=== PATIENT | female | born 2000 | race Caucasian/White ===

== ENCOUNTER 2020-04-02 18:01 | Emergency (ER) | payer BC, MEDICAID, SELFPAY ==
[2020-04-02 18:16] VITALS: BP 103/69; PULSE 123; RESP 18; TEMP 37.3; O2SAT 99; BMI 33.3
--- NOTE | 2020-04-02 18:35 | CTR_ITS ---
PROCEDURE INFORMATION: Exam: CT Abdomen And Pelvis With Contrast Exam date and time: 04/02/2020 7:37 PM Age: 19 years old Clinical indication: Nausea and vomiting and other: Diarrhea; Abdominal pain; Localized; Right lower quadrant (rlq); Additional info: Abd pain TECHNIQUE: Imaging protocol: Computed tomography of the abdomen and pelvis with intravenous contrast. Radiation optimization: All CT scans at this facility use at least one of these dose optimization techniques: automated exposure control; mA and/or kV adjustment per patient size (includes targeted exams where dose is matched to clinical indication); or iterative reconstruction. Contrast material: OMNI 300; Contrast volume: 95 ml; Contrast route: INTRAVENOUS (IV); COMPARISON: No relevant prior studies available. RADIATION DOSE METRICS: Total DLP (mGy-cm): 1687.71 FINDINGS: Lungs: Limited assessment lung bases without visible evidence of active cardiopulmonary process. Liver: Unremarkable. No mass. Gallbladder and bile ducts: Normal. No calcified stones. No ductal dilation. Pancreas: Normal. No ductal dilation. Spleen: Normal. No splenomegaly. Adrenals: Normal. No mass. Kidneys and ureters: Examination reveals focal pyelonephritis involving the equator of the right kidney. No visible abscess. Left kidney appears unremarkable. No hydronephrosis or perinephric fluid bilaterally. Stomach and bowel: Unremarkable. No obstruction. No mucosal thickening. Appendix: The appendix is visualized and appears noninflamed. Intraperitoneal space: Unremarkable. No free air. No significant fluid collection. Vasculature: Unremarkable. No abdominal aortic aneurysm. Lymph nodes: Unremarkable. No enlarged lymph nodes. Bladder: Unremarkable as visualized. Reproductive: Unremarkable as visualized. Bones/joints: No visible active osseous pathology. Soft tissues: Unremarkable. Other findings: Obesity. CT/CT abdomen pelvis w con* [id number] IMPRESSION: 1. Focal pyelonephritis right kidney. 2. The appendix is visualized and appears noninflamed. Radiation Dose CTDIVOL = (mGy): DLP = 1687.71 (mGy-cm)
--- NOTE | 2020-04-02 18:37 | W.ED.GENADLT ---
HPI - General Adult General: Chief complaint: General Medical Stated complaint: abd pain, vomiting, flank pain Time Seen by Provider: 04/02/20 18:24 Source: patient Mode of arrival: ambulatory Limitations: no limitations History of Present Illness: HPI narrative: 19-year-old female states she been having right upper quadrant and right flank pain over the last 2 days. Patient seen at [facility] yesterday and had negative COVID. States the pain is sharp in nature is much worse with palpation and improved with rest. She denies any vomiting or diarrhea. Denies any difficulty urinating. Denies any fevers. Onset (ago): day(s) Associated symptoms: Deny chest pain, dyspnea, headache(s) or rash Review of Systems Const: Denies: fever(s), chills, body aches or change in appetite Eyes: Denies: blurry vision or eye discomfort ENMT: Denies: throat pain or dental pain Card: Denies: chest pain Resp: Denies: dyspnea GI: Reports: abdominal pain : Reports: flank pain Musc: Denies: neck pain or back pain Skin/Breast: Denies: rash Neuro: Denies: headache(s) Psych: Denies: depression Gerardo/Lymph: Denies: easy bruising All/Imm: Denies: urticaria PFSH ED PFSH: Social History (Updated 04/02/20 @ 18:22 by Tariq Garcia RN) Smoking and tobacco status: never smoked Alcohol intake: never Substance/Drug Use: never Female Reproductive History: Date of last menstrual period: 03/31/20 Physical Exam Const: COMMON NORMALS: no acute distress, patient oriented x3 and healthy appearing HENMT: COMMON NORMALS: normocephalic and atraumatic HEAD & SCALP: normocephalic and atraumatic Eye: COMMON NORMALS: Equal, round and reactive pupils present and EOMs intact bilaterally PUPIL: Yes Equal, round and reactive pupils present Neck/C-Spine: COMMON NORMALS: full ROM and supple Chest: COMMONS NORMALS: normal inspection of the chest and normal palpation of entire chest wall Resp: COMMON NORMALS: normal respiratory effort, No retractions, No use of accessory muscles and clear to auscultation bilaterally AUSCULTATION: clear to auscultation bilaterally Cardio: COMMON NORMALS: regular rate, regular rhythm and No murmurs present (Cardio) RATE: regular rate RHYTHM: regular rhythm GI: COMMON NORMALS: Normal to inspection, nondistended, normoactive bowel sounds present, Soft to palpation and no masses PALPATION: Yes Soft to palpation OTHER: ruq tenderness and r flank tenderness Extremity: COMMON NORMALS: normal to inspection and full ROM Neuro: COMMON NORMALS: patient oriented x3, moves all extremities and no focal motor deficits Psych: COMMON NORMALS: mental status grossly normal, Normal thought process present and cooperative THOUGHT PROCESS: Normal thought process present Skin: COMMON NORMALS: no rashes or lesions noted and no wounds GENERAL SKIN EXAM: no rashes or lesions noted Course Vital Signs: Vital signs: Vital Signs Temperature 99.2 F 04/02/20 18:16 Pulse Rate 123 H 04/02/20 18:16 Respiratory Rate 18 04/02/20 18:16 Blood Pressure 103/69 04/02/20 18:16 Pulse Oximetry 99 04/02/20 18:16 MDM - General Adult MDM Narrative: Medical decision making narrative: Patient presents here with pyelonephritis of right kidney. Patient is able to tolerate p.o. here and is not septic. Will trial outpatient therapy first and place patient on Cipro. Patient is to follow-up primary care doctor in 3 to 5 days return if worsening. Patient understands agrees to plan. Lab Data: Labs: Lab Results 04/02/20 04/02/20 04/02/20 Range/Units 18:50 18:50 18:50 WBC 10.1 (4.5-13.0) 10^3/ uL RBC 4.62 (4.1-5.3) 10^6/u L Hgb 13.3 (11.5-15.3) g/dL Hct 41.0 (37.0-47.0) % MCV 88.7 (81-99) fL MCH 28.8 (28.0-34.0) pg MCHC 32.4 (30.0-36.0) g/dL RDW 13.1 (12.1-15.1) % Plt Count 323 (130-400) 10^3/c mm MPV 10.0 (7.4-10.4) fL Neut % (Auto) 81.0 % Lymph % (Auto) 10.5 % [place] % (Auto) 7.6 % Eos % (Auto) 0.3 % Baso % (Auto) 0.4 % Neut # (Auto) 8.17 H (1.8-8.0) 10^3/u L Lymph # (Auto) 1.1 L (1.5-6.5) 10^3/u L [place] # (Auto) 0.8 (0.2-0.9) 10^3/u L Eos # (Auto) 0.0 (0.0-0.8) 10^3/u L Baso # (Auto) 0.0 (0.0-0.1) 10^3/u L Nucleated RBC % (a uto) 0 % Nucleated RBCs # 0.0 /100WBC Sodium 137 (136-145) mmol/L Potassium 3.9 (3.5-5.1) mmol/L Chloride 101 (98-107) mmol/L Carbon Dioxide 26 (22-29) mmol/L Anion Gap 13.9 (5-19) BUN 7 (6-20) mg/dL Creatinine 0.7 (0.5-0.9) mg/dL GFR Calculation 107.8 (90-130) mL/min Glucose 110 (65-115) mg/dL Calculated Osmolal ity 280 L (285-295) mOsm/k g Calcium 9.0 (8.5-10.5) mg/dL Total Bilirubin 0.5 (0.15-1.2) mg/dL AST 12 (0-32) U/L ALT 8 (0-33) U/L Alkaline Phosphata se 76 (35-105) IU/L Total Protein 7.7 (6.6-8.7) g/dL Albumin 4.2 (3.5-5.2) g/dL Globulin 3.5 (1.3-4.6) g/dL Lipase 25 (13-60) U/L HCG, Qual Negative (Negative) Urine Color (Yellow) Urine Appearance (CLEAR) Urine pH (5-7) Ur Specific Gravit y (1.005-1.030) Urine Protein (Negative) Urine Glucose (UA) (Normal) Urine Ketones (Negative) Urine Blood (Negative) Urine Nitrate (Negative) Urine Bilirubin (NEGATIVE) Urine Urobilinogen (Negative) mg/dL Ur Leukocyte Aisha ase (Negative) Urine RBC (0-2) /hpf Urine WBC (0-5) /hpf Ur Squamous Epith Cells (0-5) Amorphous Sediment Urine Bacteria (NONE) Urine Mucus 04/02/20 Range/Units 20:07 WBC (4.5-13.0) 10^3/ uL RBC (4.1-5.3) 10^6/u L Hgb (11.5-15.3) g/dL Hct (37.0-47.0) % MCV (81-99) fL MCH (28.0-34.0) pg MCHC (30.0-36.0) g/dL RDW (12.1-15.1) % Plt Count (130-400) 10^3/c mm MPV (7.4-10.4) fL Neut % (Auto) % Lymph % (Auto) % [place] % (Auto) % Eos % (Auto) % Baso % (Auto) % Neut # (Auto) (1.8-8.0) 10^3/u L Lymph # (Auto) (1.5-6.5) 10^3/u L [place] # (Auto) (0.2-0.9) 10^3/u L Eos # (Auto) (0.0-0.8) 10^3/u L Baso # (Auto) (0.0-0.1) 10^3/u L Nucleated RBC % (a uto) % Nucleated RBCs # /100WBC Sodium (136-145) mmol/L Potassium (3.5-5.1) mmol/L Chloride (98-107) mmol/L Carbon Dioxide (22-29) mmol/L Anion Gap (5-19) BUN (6-20) mg/dL Creatinine (0.5-0.9) mg/dL GFR Calculation (90-130) mL/min Glucose (65-115) mg/dL Calculated Osmolal ity (285-295) mOsm/k g Calcium (8.5-10.5) mg/dL Total Bilirubin (0.15-1.2) mg/dL AST (0-32) U/L ALT (0-33) U/L Alkaline Phosphata se (35-105) IU/L Total Protein (6.6-8.7) g/dL Albumin (3.5-5.2) g/dL Globulin (1.3-4.6) g/dL Lipase (13-60) U/L HCG, Qual (Negative) Urine Color Yellow (Yellow) Urine Appearance Sl hazy (CLEAR) Urine pH 5 (5-7) Ur Specific Gravit y 1.015 (1.005-1.030) Urine Protein Neg (Negative) Urine Glucose (UA) Norm (Normal) Urine Ketones 1+ H (Negative) Urine Blood 2+ H (Negative) Urine Nitrate Negative (Negative) Urine Bilirubin Neg (NEGATIVE) Urine Urobilinogen Norm (Negative) mg/dL Ur Leukocyte Aisha ase Negative (Negative) Urine RBC 0-4 H (0-2) /hpf Urine WBC 10-15 H (0-5) /hpf Ur Squamous Epith Cells 10-15 H (0-5) Amorphous Sediment Not Reportable Urine Bacteria 1+ H (NONE) Urine Mucus 1+ Imaging Data^: CT Abd/Pel: Radiologist's impression: [place] [address] CT Scan Report Signed Patient: Jacquelin Kyle Unit #: [id number] : 2000 Age/Sex: 19 / F ADM Date: 04/02/20 Loc: ER Room/Bed: Attending Dr: Ordering Provider/Ordering MD: Silvestre Lester MD Date of Service: 04/02/20 Procedure(s): CT abdomen pelvis w con* [id number] Accession Number(s): [id number] Report Number: [id number] PROCEDURE INFORMATION: Exam: CT Abdomen And Pelvis With Contrast Exam date and time: 04/02/2020 7:37 PM Age: 19 years old Clinical indication: Nausea and vomiting and other: Diarrhea; Abdominal pain; Localized; Right lower quadrant (rlq); Additional info: Abd pain TECHNIQUE: Imaging protocol: Computed tomography of the abdomen and pelvis with intravenous contrast. Radiation optimization: All CT scans at this facility use at least one of these dose optimization techniques: automated exposure control; mA and/or kV adjustment per patient size (includes targeted exams where dose is matched to clinical indication); or iterative reconstruction. Contrast material: OMNI 300; Contrast volume: 95 ml; Contrast route: INTRAVENOUS (IV); COMPARISON: No relevant prior studies available. RADIATION DOSE METRICS: Total DLP (mGy-cm): 1687.71 FINDINGS: Lungs: Limited assessment lung bases without visible evidence of active cardiopulmonary process. Liver: Unremarkable. No mass. Gallbladder and bile ducts: Normal. No calcified stones. No ductal dilation. Pancreas: Normal. No ductal dilation. Spleen: Normal. No splenomegaly. Adrenals: Normal. No mass. Kidneys and ureters: Examination reveals focal pyelonephritis involving the equator of the right kidney. No visible abscess. Left kidney appears unremarkable. No hydronephrosis or perinephric fluid bilaterally. Stomach and bowel: Unremarkable. No obstruction. No mucosal thickening. Appendix: The appendix is visualized and appears noninflamed. Intraperitoneal space: Unremarkable. No free air. No significant fluid collection. Vasculature: Unremarkable. No abdominal aortic aneurysm. Lymph nodes: Unremarkable. No enlarged lymph nodes. Bladder: Unremarkable as visualized. Reproductive: Unremarkable as visualized. Bones/joints: No visible active osseous pathology. Soft tissues: Unremarkable. Other findings: Obesity. CT/CT abdomen pelvis w con* [id number] IMPRESSION: 1. Focal pyelonephritis right kidney. 2. The appendix is visualized and appears noninflamed. Discharge Plan Discharge Patient Disposition: Home Clinical Impression: Pyelonephritis Condition: Stable Prescriptions: [place] 5-325 mg tablet 1 tab PO Q6H PRN (Reason: pain) Qty: 14 RF: 0 ondansetron 4 mg tablet,disintegrating 4 mg PO Q6H PRN (Reason: nausea and vomiting) Qty: 14 RF: 0 Cipro 500 mg tablet 500 mg PO BID Qty: 14 RF: 0 Discharge Orders: Discharge Order (Routine); Ordered 04/02/20 Ordered By: Silvestre Lester Referrals: David Hernandez MD [Primary Care Provider] - 1-3 days Discharge Diet: Advance as tolerated Discharge Activity: Resume usual activity Patient Instructions: Acute Pyelonephritis (ED) Stand Alone Forms: Work/School Release Coding Level of Care Code ED 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
[2020-04-02 18:58] LABS: Basophils % 0.4 %; Eosinophils % 0.3 %; Hemoglobin 13.3 g/dL (11.5-15.3); Lymphocytes # 1.1 10^3/uL (1.5-6.5); Lymphocytes % 10.5 %; Mean Corpuscular HGB Conc 32.4 g/dL (30.0-36.0); Mean Corpuscular Hemoglobin 28.8 pg (28.0-34.0); Mean Corpuscular Volume 88.7 fL (81-99); Monocytes # 0.8 10^3/uL (0.2-0.9); Monocytes % 7.6 %; Neutrophils # 8.17 10^3/uL (1.8-8.0); Nucleated Red Blood Cells % 0 %; Platelet Count 323 10^3/cmm (130-400); Red Blood Count 4.62 10^6/uL (4.1-5.3); Red Cell Distribution Width 13.1 % (12.1-15.1); White Blood Count 10.1 10^3/uL (4.5-13.0)
[2020-04-02 19:25] LABS: Alanine Aminotransferase 8 U/L (0-33); Albumin Level 4.2 g/dL (3.5-5.2); Alkaline Phosphatase 76 IU/L (35-105); Anion Gap 13.9 (5-19); Aspartate Amino Transferase 12 U/L (0-32); Blood Urea Nitrogen 7 mg/dL (6-20); Carbon Dioxide 26 mmol/L (22-29); Chloride 101 mmol/L (98-107); Globulin 3.5 g/dL (1.3-4.6); Glomerular Filtration Rate 107.8 mL/min (90-130); Glucose 110 mg/dL (65-115); Lipase 25 U/L (13-60); Osmolality Calculated 280 mOsm/kg (285-295); Potassium 3.9 mmol/L (3.5-5.1); Sodium 137 mmol/L (136-145); Total Bilirubin 0.5 mg/dL (0.15-1.2); Total Protein 7.7 g/dL (6.6-8.7)
[2020-04-02 19:29] LABS: HCG, Serum Qual Negative (Negative)
[2020-04-02] MEDS: iohexol 300 mg/mL 100 mL Btl IV (19:57)
[2020-04-02] MEDS: sodium chloride 0.9% 1,000 ML 999 ML IV (20:30)
[2020-04-02 20:35] LABS: Add Urine Microscopic? YES; Bacteria Urine 1+; Bilirubin Urine Neg (NEGATIVE); Blood Urine 2+ (Negative); Glucose Urine UA Norm (Normal); Ketones Urine 1+ (Negative); Leukocyte Esterase Urine Negative (Negative); Mucus Urine 1+; Nitrate Urine Negative (Negative); Protein Urine Neg (Negative); RBC Urine 0-4 /hpf (0-2); Specific Gravity, Urine 1.015 (1.005-1.030); Urine Appearance SL Hazy (CLEAR); Urine Color Yellow (Yellow); Urobilinogen Urine Norm (Negative); pH Urine 5 (5-7)
[2020-04-02] MEDS: cefTRIAXone 1,000 mg SDV 1000 MG IM (21:11)
[2020-04-02] MEDS: lidocaine 1% INJ 20 mL INJECTION (21:11)
[2020-04-02 21:30] VITALS: BP 117/74; PULSE 77; RESP 16; O2SAT 100
== END 2020-04-02 21:32 | disposition home or self-care (01) ==
PROVIDERS: Emergency Provider Emergency Medicine; PCP Family Medicine
DX: N12 Tubulo-interstitial nephritis, not specified as acute or chronic (principal)
CPT/HCPCS: 12345; 36415; 74177; 80053; 81001; 83690; 84703; 85025; 87077; 87086; 87186; 96360; 96372; 99281; 99283; J0696; J7030; Q9967

== ENCOUNTER → 2020-06-20 16:07 | Outpatient (BNVA) | payer BC, MEDICAID, SELFPAY | PROVIDERS: PCP Family Medicine; Visit Provider Obstetrics & Gynecology | DX: Z32.01 Encounter for pregnancy test, result positive (principal) | CPT/HCPCS: 81025 ==

== ENCOUNTER → 2020-07-04 08:45 | Outpatient (BNVA) | payer BC, MEDICAID, SELFPAY | PROVIDERS: PCP Family Medicine; Visit Provider Nurse Practitioner Women's Health | DX: Z34.81 Encounter for supervision of other normal pregnancy, first trimester (principal) | CPT/HCPCS: 84315; 87086 ==

== ENCOUNTER → 2020-07-17 13:50 | Outpatient (BNVA) | payer BC, MEDICAID, SELFPAY | PROVIDERS: PCP Family Medicine; Visit Provider Obstetrics & Gynecology | DX: O26.899 Other specified pregnancy related conditions, unspecified trimester (principal); O99.210 Obesity complicating pregnancy, unspecified trimester; N76.0 Acute vaginitis; B96.89 Other specified bacterial agents as the cause of diseases classified elsewhere; O23.599 Infection of other part of genital tract in pregnancy, unspecified trimester; Z3A.00 Weeks of gestation of pregnancy not specified | CPT/HCPCS: 80307; 82950; 84315; 84443; 85027; 86592; 86762; 86803; 86850; 86900; 87070; 87086; 87205; 87340; 87491; 87591; 87661; 87806 ==

== ENCOUNTER → 2020-07-23 07:57 | Outpatient (BNVA) | payer BC, SELFPAY | PROVIDERS: PCP Family Medicine; Visit Provider Obstetrics & Gynecology | DX: Z34.90 Encounter for supervision of normal pregnancy, unspecified, unspecified trimester (principal) | CPT/HCPCS: 82951; 82952; 83036; 84315 ==

== ENCOUNTER → 2020-08-21 08:05 | Outpatient (BNVA) | payer BC, MEDICAID, SELFPAY | PROVIDERS: PCP Family Medicine; Visit Provider Nurse Practitioner Women's Health | DX: O23.599 Infection of other part of genital tract in pregnancy, unspecified trimester (principal); A59.01 Trichomonal vulvovaginitis; O26.899 Other specified pregnancy related conditions, unspecified trimester; N89.8 Other specified noninflammatory disorders of vagina; A59.9 Trichomoniasis, unspecified; Z3A.00 Weeks of gestation of pregnancy not specified | CPT/HCPCS: 84315; 87661 ==

== ENCOUNTER 2020-10-14 17:33 | Outpatient (CLI) | payer BC, SELFPAY ==
[2020-10-14 17:44] VITALS: BMI 44.6
[2020-10-14 17:50] VITALS: BP 133/75; PULSE 129
[2020-10-14 18:35] VITALS: BP 133/75; PULSE 129; RESP 18
--- NOTE | 2020-10-14 18:40 | PC.NURSE ---
UNABLE TO PRINT HOME CARE INSTRUCTIONS THIS ACQUISITIONS LOGISTICS ANALYST TRIED WELL ANOTHER STAFF MEMBER STILL UNABLE TO GET THEM TO PRINT.
[2020-10-14 20:49] LABS: UPRO/UCREAT Ratio 0.12 mg/mg CR; Urine Creatinine 68 mg/dL (28-217); Urine Protein Random 8 mg/dL
== END 2020-10-14 18:35 | disposition home or self-care (01) ==
LOC: OPOB 17:36 → OBGYN 17:37
PROVIDERS: PCP Family Medicine; Visit Provider Obstetrics & Gynecology
DX: O21.9 Vomiting of pregnancy, unspecified (principal); Z3A.00 Weeks of gestation of pregnancy not specified; R19.7 Diarrhea, unspecified
CPT/HCPCS: 82570; 84156; 99211

== ENCOUNTER → 2020-11-13 08:45 | Outpatient (BNVA) | payer BC, SELFPAY | PROVIDERS: PCP Family Medicine; Visit Provider Obstetrics & Gynecology | DX: Z34.01 Encounter for supervision of normal first pregnancy, first trimester (principal) | CPT/HCPCS: 82951; 82952; 84315; 85025 ==

== ENCOUNTER 2020-12-24 16:04 | Outpatient (CLI) | payer BC, SELFPAY ==
[2020-12-24] VITALS (8 sets, daily range): BP systolic 104–120; BP diastolic 58–71; PULSE 95–122; RESP 17; BMI 44.2
== END 2020-12-24 18:10 | disposition home or self-care (01) ==
LOC: OPOB 16:05 → OBGYN 16:30
PROVIDERS: PCP Family Medicine; Visit Provider Obstetrics & Gynecology
DX: O26.899 Other specified pregnancy related conditions, unspecified trimester (principal); Z3A.00 Weeks of gestation of pregnancy not specified; R10.2 Pelvic and perineal pain
CPT/HCPCS: 59025; 99211

== ENCOUNTER → 2021-01-06 13:22 | Outpatient (BNVA) | payer BC, SELFPAY | PROVIDERS: PCP Family Medicine; Visit Provider Obstetrics & Gynecology | DX: Z34.01 Encounter for supervision of normal first pregnancy, first trimester (principal) | CPT/HCPCS: 84315; 87081; 87661 ==

== ENCOUNTER → 2021-01-29 10:13 | Outpatient (BNVA) | payer BC, SELFPAY | PROVIDERS: PCP Family Medicine; Visit Provider Obstetrics & Gynecology | DX: Z34.01 Encounter for supervision of normal first pregnancy, first trimester (principal) | CPT/HCPCS: 84315; 87635 ==

== ENCOUNTER 2021-02-02 18:50 | Inpatient (IN) | payer BC, SELFPAY ==
[2021-02-02] VITALS (8 sets, daily range): BP systolic 116–129; BP diastolic 60–76; PULSE 104–138; TEMP 36.2–36.7; O2SAT 98
[2021-02-02] MEDS: miSOPROStol 100 mcg tablet 25 MCG VAGINAL (19:59)
--- NOTE | 2021-02-02 20:01 | PM.OPHPUD ---
Labor & Delivery H&P Update Date of Procedure: February 02, 2021 Date H&P Performed: 01/27/21 H&P update information: I have reviewed H&P completed within last 30 days and No changes to prior documentation Admission Diagnosis:
[2021-02-02 23:13] LABS: Basophils # 0.1 10^3/uL (0.0-0.1); Basophils % 0.5 %; Eosinophils # 0.1 10^3/uL (0.0-0.8); Eosinophils % 1.2 %; Hematocrit 32.4 % (37.0-47.0); Hemoglobin 10.5 g/dL (11.5-15.3); Lymphocytes # 1.8 10^3/uL (1.5-6.5); Lymphocytes % 17.9 %; Mean Corpuscular HGB Conc 32.4 g/dL (30.0-36.0); Mean Corpuscular Hemoglobin 27.4 pg (28.0-34.0); Mean Corpuscular Volume 84.6 fL (81-99); Mean Platelet Volume 11.8 fL (7.4-10.4); Monocytes # 0.7 10^3/uL (0.2-0.9); Monocytes % 6.8 %; Neutrophils # 7.19 10^3/uL (1.8-8.0); Neutrophils % 73.5 %; Nucleated Red Blood Cells % 0 %; Platelet Count 276 10^3/cmm (130-400); Red Blood Count 3.83 10^6/uL (4.1-5.3); Red Cell Distribution Width 13.5 % (12.1-15.1); White Blood Count 9.8 10^3/uL (4.5-13.0)
[2021-02-03] VITALS (42 sets, daily range): BP systolic 92–149; BP diastolic 54–87; PULSE 83–107; RESP 15–18; TEMP 35.8–37.1
[2021-02-03] MEDS: miSOPROStol 100 mcg tablet 25 MCG VAGINAL ×3 (00:22→10:20)
[2021-02-03] MEDS: dextrose 5%-lactated ringers 1,000 ML 125 ML IV (20:15)
[2021-02-03] MEDS: oxytocin 30 UNIT/500 ML BAG IV (20:15)
[2021-02-04] VITALS (128 sets, daily range): BP systolic 92–164; BP diastolic 52–99; PULSE 32–164; RESP 17–18; TEMP 35.9–37.9; O2SAT 81–100
[2021-02-04] MEDS: dextrose 5%-lactated ringers 1,000 ML 125 ML IV ×3 (04:12→18:21)
--- NOTE | 2021-02-04 10:00 | PC.NURSE ---
Pitocin titration. Pitocin started at 0845 as ordered, verified by BYRON Pretty. Spreadsheet filled out, did not save and medication fell off SEP and had to be reacknowledged. Actual pitocin titration as follows: 0845 2mU. 0900 4mU. 0915 6mU. 0930 8mU. 0945 10mU. 1000 12mU. then back on track on flowsheet in SEP.
[2021-02-04] MEDS: fentaNYL 50 mcg/mL INJ 2mL IVP ×2 (10:49→11:49)
[2021-02-04] MEDS: lactated ringers 1,000 ML 999 ML IV ×2 (11:52→13:13)
--- NOTE | 2021-02-04 13:10 | P.PN_ITS ---
Subjective Subjective: Interval history: Subjective- Ms. Kyle is a 20-year-old 1 para 0 at 40 weeks and 3 days today. She is undergoing an induction of labor-elective. Induction started on 02/02/2021 at 7 PM. When she presented for scheduled induction at 40 weeks and 1 day gestation her cervix was 140% -3 station and firm. tracing was category 1 and vital signs were normal. Induction was started with Cytotec under Dr. Damon and a total of 4 doses of Cytotec were placed the last of which was placed at 10 AM on 02/03/2021. With this she made minimal cervical change to 1- 1/2 cm 50% and -3 station. She was allowed to rest eat and shower and induction was continued with Pitocin titrated to a maximum of 8 mIU started at 8 PM on 02/03/2021. Pitocin was turned off at 6 AM on 02/04/2021 at which point she was 2 cm 50% and -3 station. Pitocin was stopped and patient was allowed to eat and ambulate and shower. Throughout this induction process tracing was overall category 1 and vital signs were normal and pain was controlled with as needed IV pain medication. SCDs were placed while she was in bed for DVT prophylaxis once Pitocin was started. ----> At 8:30 AM on 02/04/2021 her cervical exam was 2 cm 50% and -3 station and Pitocin was restarted titrated to a maximum of 20 mIU. With this she started to get a little bit more uncomfortable. Artificial rupture of membranes was performed at 11:30 AM on 02/04/2021 and 3 of fluid was obtained. At this time she was 3 to 4 cm, 50 to 60% effaced and -2 station. It was well applied onto the cervix. Patient was uncomfortable and desired an epidural. Objective- Blood pressure-135/74 mmHg Pulse-99 beats per minute Temperature-98.4 Fahrenheit Abdomen-gravid, nontender, obese, Sterile vaginal exam-3 to 4 cm, 50 to 60% effaced, -2 station, head well applied, clear fluid after AROM EFM-135, moderate variability, accelerations present no decelerations [place]-contractions every 2 to 4 minutes Assessment: 20-year-old 1 para 0 at 40 weeks and 3 days gestation GBS negative, Covid negative Obesity-SCDs for DVT prophylaxis Plan: -It looks like she may finally be getting into early labor as her cervix is finally responding to medication after almost 30 hours. Cervical checks every 1-2 hours to reassess the cervix. -Epidural and she desires this now. - continue SCDs for DVT prophylaxis. -Continuous EFM and tocometry -Anticipate that she will deliver in the next 24 hours. Vitals/I&O/Wt Last Vital Signs Temp 97.3 F L 02/04/21 10:54 Pulse 120 H 02/04/21 13:06 Resp 18 02/04/21 11:49 BP 138/73 02/04/21 13:06 Pulse Ox 97 02/04/21 12:59 02/03/21 02/04/21 02/04/21 22:59 06:59 14:59 Intake Total 320.0 / 320.0 976.667 / 1296.667 238.983 / 238.983 Balance 320.0 / 320.0 976.667 / 1296.667 238.983 / 238.983 Weight last 48 hrs Weight 253 lb Data : 02/02/21 19:20 Attestations Medical Necessity Statement*: Patient needs to stay in the hospital for delivery and recovery and anticipate this will take a couple more midnights depending on delivery Coding Level of Care Code Acute Criminal Research Specialist for Elmer Weaver
--- NOTE | 2021-02-04 13:23 | P.ANESASSM_ITS ---
Pre-Anesthetic Assessment Pre-Anesthetic Assessment: Height/Weight: Height 1.65 m Weight 114.759 kg Temp Pulse Resp BP Pulse Ox 97.3 F L 110 H 18 124/83 98 02/04/21 10:54 02/04/21 13:21 02/04/21 11:49 02/04/21 13:21 02/04/21 13:20 Was Beta Angi taken within 24 hours: N/A Was Clonidine taken within 24 hours: N/A Social: Social History: No alcohol and No tobacco Exam: Pre-Anes Outpt Exam: alert and oriented x 3 Pulmonary: Pulmonary: None reported CV/HEM: CV/HEM: None reported : : None reported Hepatic: Hepatic: None reported GI: GI: GERD Metabolic: Metabolic: None reported Musc/skel: Musc/skel: Scoliosis Neuropsych: Neuropsych: None reported Anesthetic Plan: ASA status: 2 Anesthesia: Regional (specify below) Other: Labor Epidural; risks and benefits disc including permanent injuries. Meds/Allergies Current Medications: Current Medications Generic Name Dose Route Start Last Admin Trade Name Freq PRN Reason Stop Dose Admin Fentanyl 25 - 100 mcg 02/02/21 19:36 02/04/21 11:49 Fentanyl 50 Mcg/ Ml Inj 2ml IVP 50 mcg Q1H PRN Administration SEVERE PAIN Dextrose/Lactated Ringer's 1,000 mls @ 125 m ls/hr 02/02/21 19:45 02/04/21 10:30 Dextrose 5%-Lact ated Ringers IV 115 mls/hr .Q8H MIGUEL Infusion Oxytocin 30 unit in 500 ml s @ 1 mls/hr 02/03/21 20:15 02/04/21 11:24 Pitocin IV 20 milliunit/min .Q24H MIGUEL 20 mls/hr Titration Protocol 1 MILLIUNIT/MIN Ropivacaine 200 mg in 100 mls @ 13 mls/hr 02/04/21 11:45 02/04/21 13:13 Naropin Premix EPIDURAL 13 mls/hr .Q7H42M MIGUEL Administration Lactated Ringer's 1,000 mls @ 999 m ls/hr 02/04/21 11:41 02/04/21 13:13 Lactated Ringers IV 999 mls/hr .Q1H1M PRN Administration See label comment s PFSH Anesthesia PFSH: Medical History No pertinent past medical history Denies diabetes, asthma, hypertension, seizures, DVT/PE. PCP: Mien Combs Surgical History No pertinent past surgical history Family History Grandfather Heart disease Maternal Hypertension Maternal Mother Heart disease SVT Denies family history of Colon cancer Ovarian cancer Diabetes Breast cancer Uterine cancer Thyroid disease Stroke Female Reproductive History: Date of last menstrual period: 03/31/20 : 1 Data Anesthesia CBC & Chem 7: 02/02/21 19:20 Other Labs: Laboratory Results - last 48 hr 02/02/21 19:20 WBC 9.8 RBC 3.83 L Hgb 10.5 L Hct 32.4 L MCV 84.6 MCH 27.4 L MCHC 32.4 RDW 13.5 Plt Count 276 MPV 11.8 H Neut % (Auto) 73.5 Lymph % (Auto) 17.9 [place] % (Auto) 6.8 Eos % (Auto) 1.2 Baso % (Auto) 0.5 Neut # (Auto) 7.19 Lymph # (Auto) 1.8 [place] # (Auto) 0.7 Eos # (Auto) 0.1 Baso # (Auto) 0.1 Nucleated RBC % (auto) 0 Nucleated RBCs # 0.0 Cardiac Studies: No Data to Display
--- NOTE | 2021-02-04 13:26 | ANES.PROC ---
Anesthesia Procedures Procedure/Date: 02/04/21 Epidural: Time Out Performed: Yes Consents Signed: Procedure Consent Consent: requested by attending/covering physician, risks and benefits reviewed and patient agrees to proceed Lumbar Level: L4-L5 Epidural position: sitting Epidural procedure: sterile prep of area, 1% lidocaine to numb the area, neg for paresthesia, 1.5% xylocaine 1:200k epi, no systemic response, sterile dressing applied, L.U.D. no apparent complications and 0.2% Ropiavacaine @ mls/hr (13) Additional Comments: Easy single pass with distinct saline PRADIP; catheter advanced with great ease. No paresthesia or complication. Continuous encouragement/coaching required to maintain posture and control.
[2021-02-04] MEDS: ondansetron 2 mg/ML SDV 2 mL 4 MG IVP (17:46)
[2021-02-05] VITALS (57 sets, daily range): BP systolic 94–133; BP diastolic 53–79; PULSE 64–130; RESP 18; TEMP 36–38.4; O2SAT 99
--- NOTE | 2021-02-05 00:10 | PM.DELIVERY ---
Delivery Note: Date of delivery: February 04, 2021 Pre-delivery diagnoses: IUP at 40 3/7 weeks Post-delivery diagnoses: same-delivered Procedure: Op report anesthesia: Epidural Delivering Physician: Jackelyn Estimated blood loss (mL): 100 Findings: term female in the ALYX presentation Pre-Delivery Course: The patient was admitted for induction at term. She had four doses of cytotec. She had low dose pitocin and then began pitocin induction. Delivery: The patient had complete cervical dilation and began to push. The head delivered in the ALYX position over an intact perineum under epidural anesthesia. The nose and mouth were bulb suctioned. The shoulders and body delivered atraumatically. The baby was placed onto the mother's abdomen. The cord was clamped and cut. Cord blood was obtained. The placenta delivered spontaneously. It was inspected and found to be intact. Inspection of the perineum revealed a second-degree midline perineal laceration and a left periurethral laceration. These were repaired in the usual fashion.. Estimated blood loss 100 mL. Apgars on baby were [ ] at 1 minute and 9 at 5 minutes. Weight of baby is 8 pounds. Mother and baby were stable post delivery. Coding Level of Care Code Acute Automatic Blocker for Elmer Weaver
[2021-02-05] MEDS: oxytocin 30 UNIT/500 ML BAG 600 UNIT IV (02:00)
[2021-02-05] MEDS: HYDROcodone-acetaminophen 5-325 mg Tablet PO (02:34)
[2021-02-05] MEDS: dextrose 5%-lactated ringers 1,000 ML 125 ML IV (02:35)
[2021-02-05] MEDS: benzocaine-menthol 78 gm Canister 1 SPRAY TOPICAL (02:35)
[2021-02-05] MEDS: prenatal vitamin Capsule 1 CAP PO (08:19)
[2021-02-05] MEDS: docusate sodium 100 mg Capsule PO ×2 (08:19→22:10)
[2021-02-05] MEDS: ibuprofen 800 mg tablet PO ×3 (08:19→22:09)
--- NOTE | 2021-02-05 10:33 | P.PN_ITS ---
Subjective Subjective: Interval history: The patient is doing well this morning. She is tolerating a regular diet. She has been icing her raúl area and has been able to void. She is able to ambulate without issue. Medications: Reviewed: Yes Vitals/I&O/Wt Last Vital Signs Temp 98.8 F 02/05/21 05:54 Pulse 72 02/05/21 10:24 Resp 18 02/04/21 20:00 BP 109/70 02/05/21 10:24 Pulse Ox 99 02/04/21 16:00 02/04/21 02/05/21 02/05/21 22:59 06:59 14:59 Intake Total 1821.233 / 4256.382 373.201 / 4629.583 Output Total 300 / 300 400 / 700 Balance 1521.233 / 3956.382 -26.799 / 3929.583 Physical Exam Const: COMMON NORMALS: no acute distress, patient oriented x3, no limitations and healthy appearing GENERAL APPEARANCE: cooperative, comfortable, well kempt and well developed ORIENTATION/CONSCIOUSNESS: Yes awake, Yes oriented to person, Yes oriented to place and Yes oriented to time Neck/C-Spine: COMMON NORMALS: full ROM and supple Resp: COMMON NORMALS: normal respiratory effort EFFORT & INSPECTION: Yes able to speak in complete sentences GI: COMMON NORMALS: Soft to palpation and non-tender PALPATION: Yes Soft to palpation Extremity: COMMON NORMALS: no calf tenderness Neuro: COMMON NORMALS: patient oriented x3 SENSORIUM/ORIENTATION: Yes oriented to person, Yes oriented to place and Yes oriented to time Psych: APPEARANCE: Yes well kempt Urinary Catheter Management^: Dao Latex Free: Cath Placed During This Visit: yes, but has since been removed by the nurse Reason for Continuing Indwelling Catheter: Required Immobilization for Trauma or Surgery or Anesthesia Urinary Catheter Date of Insertion: 02/04/21 Urinary Catheter Time of Insertion: 13:45 Date Urinary Catheter Removed: 02/04/21 Time Urinary Catheter Discontinued: 23:03 Data : 02/02/21 19:20 A&P Assessment and plan (1) state: Status: Acute Attestations Medical Necessity Statement*: The patient had a vaginal delivery last night. She will be here two midnights. Coding Level of Care Code Acute Cement Crusher Operator for Chg Fwd Diagnoses state Z39.2
[2021-02-05 13:19] LABS: Hematocrit 31.5 % (37.0-47.0); Hemoglobin 10.1 g/dL (11.5-15.3); Mean Corpuscular HGB Conc 32.1 g/dL (30.0-36.0); Mean Corpuscular Hemoglobin 26.9 pg (28.0-34.0); Mean Platelet Volume 11.3 fL (7.4-10.4); Platelet Count 278 10^3/cmm (130-400); Red Blood Count 3.75 10^6/uL (4.1-5.3); Red Cell Distribution Width 13.5 % (12.1-15.1); White Blood Count 13.9 10^3/uL (4.5-13.0)
[2021-02-06] VITALS (7 sets, daily range): BP systolic 102–118; BP diastolic 56–76; PULSE 75–109; RESP 18; TEMP 36.2–36.8; O2SAT 99
--- NOTE | 2021-02-06 07:47 | PM.DCS ---
Discharge Providers Date of Admission: 02/02/21 18:50 Date of Discharge: February 06, 2021 Attending Provider at Admission: Jimmy Damon MD Attending Provider at Discharge: melissa Hayden MD Primary Care Provider: David Hernandez MD Diagnoses at Discharge Discharge Diagnosis (1) state: Status: Acute Reason for Visit Reason for Visit: INDUCTION Hospital Course Hospital Course The patient was admitted for induction at term. She had spontaneous delivery of a term female . She did well and was ready for discharge on day #2 Physical Exam Narrative: EXAM NARRATIVE: the patient has no complaints this morning Const: COMMON NORMALS: no acute distress, patient oriented x3, alert and well nourished GENERAL APPEARANCE: cooperative, comfortable, well kempt and well developed ORIENTATION/CONSCIOUSNESS: Yes awake, Yes oriented to person, Yes oriented to place and Yes oriented to time Resp: COMMON NORMALS: normal respiratory effort EFFORT & INSPECTION: Yes able to speak in complete sentences GI: COMMON NORMALS: Soft to palpation and non-tender PALPATION: Yes Soft to palpation Extremity: COMMON NORMALS: no calf tenderness Neuro: COMMON NORMALS: patient oriented x3 SENSORIUM/ORIENTATION: Yes alert, Yes oriented to person, Yes oriented to place and Yes oriented to time Psych: APPEARANCE: Yes well kempt Urinary Catheter Management^: Dao Latex Free: Cath Placed During This Visit: yes, but has since been removed by the nurse Reason for Continuing Indwelling Catheter: Required Immobilization for Trauma or Surgery or Anesthesia Urinary Catheter Date of Insertion: 02/04/21 Urinary Catheter Time of Insertion: 13:45 Date Urinary Catheter Removed: 02/04/21 Time Urinary Catheter Discontinued: 23:03 Discharge Data Data Completed and Pending: Labs from last 24 hours 02/05/21 13:05 WBC 13.9 H RBC 3.75 L Hgb 10.1 L Hct 31.5 L MCV 84.0 MCH 26.9 L MCHC 32.1 RDW 13.5 Plt Count 278 MPV 11.3 H Vitals: Last Vital Signs Temp 97.2 F L 02/06/21 05:06 Pulse 75 02/06/21 05:07 Resp 18 02/05/21 22:39 BP 105/56 02/06/21 05:07 Pulse Ox 99 02/05/21 22:39 Discharge Plan Discharge Patient Disposition: Home Condition: Stable Prescriptions: Continued prenat.vits,stephane,uka-vqzz-vgcve Tablet 1 tab PO DAILY RF: 0 propranolol 10 mg tablet 10 mg PO DAILY RF: 0 (DME) breast pump [Pump In Style Advanced] Device See Rx Instructions .ROUTE .MEDSUPPLY Qty: 1 RF: 0 tekotkbvrk-odadkssewjqav-mscv [Fioricet] 50-300-40 mg capsule 1 cap PO Q6H PRN (Reason: pain) Qty: 10 RF: 0 Discharge Orders: Discharge Order (Routine); Ordered 02/06/21 Ordered By: Melissa Hayden Referrals: Jamila Grubbs MD [Physician] - 03/13/21 12:30 pm (Your 6 week post- appointment is scheduled for 03/18 @12:30) Patient Instructions: Depression (GEN), Pre-eclampsia and Eclampsia (DC), Bleeding (DC), OB Discharge Report, OB Food/Drug Interaction Guide, Opioid Safety, OB Home Care, OB Proud Parent Packet, OB Vaginal Deliveries - [facility] Discharge Attestations Time Spent in Discharge Care*: less than 30 min Quality Metrics Clinical Quality Measures During this hospital stay, did patient experience: None Coding Level of Care Code Acute Chg FW DC note Diagnoses state Z39.2
[2021-02-06] MEDS: ibuprofen 800 mg tablet PO (09:18)
[2021-02-06] MEDS: docusate sodium 100 mg Capsule PO (09:18)
[2021-02-06] MEDS: prenatal vitamin Capsule 1 CAP PO (09:18)
== END 2021-02-06 12:08 | disposition home or self-care (01) | DRG 807 ==
LOC: OPOB 19:05 → OBGYN 19:05
PROVIDERS: Obstetrics & Gynecology; Admitting Provider Obstetrics & Gynecology; PCP Family Medicine; Visit Provider Obstetrics & Gynecology
DX: O48.0 Post-term pregnancy (principal); Z37.0 Single live birth; O99.214 Obesity complicating childbirth; E66.9 Obesity, unspecified; O70.1 Second degree perineal laceration during delivery; O71.82 Other specified trauma to perineum and vulva; Z3A.40 40 weeks gestation of pregnancy
CPT/HCPCS: 36415; 51702; 59025; 59409; 85025; 85027; 96374; 96375; J2405; J2795; J3010

== ENCOUNTER 2021-07-29 17:32 | Emergency (ER) | payer BC, MEDICAID, SELFPAY ==
[2021-07-29 17:52] VITALS: BP 125/93; PULSE 115; RESP 15; TEMP 37.1; O2SAT 97; BMI 41.5
--- NOTE | 2021-07-29 18:49 | ED_ITS ---
HPI - Allergic Reaction General: Chief complaint: Allergic Reaction Stated complaint: HIVES AND SWOLLEN EYE CLOVIS EVANS SENT Time Seen by Provider: 07/29/21 18:47 History of Present Illness: HPI narrative: Patient is a 21-year-old female comes to the ED with pruritic rash. Symptoms have been going on for the past 2 days. Patient says she will have spots of a round pruritic rash that pop up on different areas of her body for the past 2 days. Says the rash is very itchy and it may last for couple hours and then goes away. Denies any recent change in soaps, lotions, detergents. Denies any food allergies or any known environmental contact allergies. Denies any shortness of breath, lip or tongue swelling, throat tightening, nausea/vomiting or diarrhea. She has been taking Benadryl for the past 2 days and it has not helped symptoms. Associated symptoms: Deny abdominal pain, nausea or vomiting Review of Systems Const: Denies: fever(s), chills or fatigue Eyes: Denies: change in vision or eye discomfort ENMT: Denies: throat pain, odynophagia, nasal discharge or nasal congestion Card: Denies: chest pain, palpitations, edema, swelling of feet/ankles, dyspnea on exertion or orthopnea Resp: Denies: dyspnea, productive cough or non-productive cough GI: Denies: abdominal pain, nausea, vomiting, diarrhea, constipation or hematochezia : Denies: flank pain, dysuria or hematuria Musc: Denies: neck pain, back pain or extremity swelling Skin/Breast: Reports: rash (Pruritic rash) and pruritus; Denies: new lesions Neuro: Denies: headache(s), numbness in extremities or weakness in extremities PFSH ED PFSH: Medical History No pertinent past medical history Denies diabetes, asthma, hypertension, seizures, DVT/PE. PCP: Mine Combs Surgical History No pertinent past surgical history Family History Grandfather Heart disease Maternal Hypertension Maternal Mother Heart disease SVT Denies family history of Colon cancer Ovarian cancer Diabetes Breast cancer Uterine cancer Thyroid disease Stroke Female Reproductive History: Date of last menstrual period: 03/31/20 Physical Exam Const: COMMON NORMALS: no acute distress, patient oriented x3, healthy appearing and alert GENERAL APPEARANCE: cooperative and comfortable HENMT: COMMON NORMALS: normocephalic HEAD & SCALP: normocephalic MOUTH: Normal oral and palatal mucosa present THROAT: posterior oropharynx normal and uvula midline Neck/C-Spine: COMMON NORMALS: supple GENERAL: Yes normal visual inspection Resp: COMMON NORMALS: normal respiratory effort, No retractions, No use of accessory muscles and clear to auscultation bilaterally AUSCULTATION: clear to auscultation bilaterally Cardio: COMMON NORMALS: regular rate, regular rhythm, S1 normal heart sound present, S2 normal heart sound present, No gallops present (Cardio), No clicks present (Cardio), No murmurs present (Cardio) and Peripheral pulses 2+ throughout RATE: regular rate RHYTHM: regular rhythm HEART SOUNDS: S1 normal heart sound present and S2 normal heart sound present PERIPHERAL PULSES: Peripheral pulses 2+ throughout GI: COMMON NORMALS: Normal to inspection, nondistended, normoactive bowel sounds present, Soft to palpation, non-tender and no masses PALPATION: Yes Soft to palpation : COMMON NORMALS: Yes no CVA tenderness BLADDER/KIDNEY EXAM: Yes no CVA tenderness Back/Pelvis: COMMON NORMALS: no CVA tenderness Extremity: COMMON NORMALS: normal to inspection Neuro: COMMON NORMALS: patient oriented x3 and moves all extremities SENSOR IUM/ORIENTATION: Yes alert Skin: NARRATIVE SKIN EXAM: Small raised round erythemic maculopapular rash that is pruritic. Rash seen on left thigh. Findings suggestive of urticaria. GENERAL SKIN EXAM: dry skin Course Vital Signs: Vital signs: Vital Signs Temperature 98.8 F 07/29/21 17:52 Pulse Rate 112 H 07/29/21 18:52 Respiratory Rate 16 07/29/21 18:52 Blood Pressure 129/82 07/29/21 19:29 Pulse Oximetry 98 07/29/21 18:52 MDM - Allergic Reaction MDM Narrative: Medical decision making narrative: Patient is a 21-year-old female comes to the ED with pruritic rash. Exam findings suggestive of ur ticaria. Denies any shortness of breath, throat tightening, lip or tongue swelling, vomiting, diarrhea. Vitals are stable. Patient diagnosed with urticaria. Patient was given IM Solu-Medrol here in the ED and discharged home with a prescription for prednisone. She was told to continue taking her Benadryl as needed as well for rash. Follow-up with PCP in 7 to 10 days reevaluation. Return ED precautions given. Patient understood agree with plan. Discharge Plan Discharge Patient Disposition: Home Clinical Impression: Urticaria Condition: Stable Prescriptions: New prednisone 20 mg tablet 20 mg PO BID 5 Days Qty: 10 RF: 0 No Action norethindrone-e.estradiol-iron [June FE 08/21 (28)] 1 mg-20 mcg ()/75 mg (7) tablet 1 tab PO DAILY Qty: 84 RF: 0 Discharge Orders: Discharge ED (Routine); Ordered 07/29/21 Ordered By: José Enciso Referrals: David Hernandez MD [Primary Care Provider] - Discharge Diet: Regular Discharge Activity: Resume usual activity Patient Instructions: Urticaria (ED) Activity Restrictions/Additional Instructions: Follow-up with medical provider as directed in 7 to 10 days for reevaluation. Take medications as prescribed. You can also continue taking ulny-pen-ojpgqpc Benadryl as needed for rash. Return to the ER or your medical provider if condition worsens. Please read and understand discharge instructions. Thank you for choosing [facility] for your healthcare needs today. Please realize this is an emergency room and that we are providing you with a medical screening exam and this may not be complete and all inclusive of all the testing and or work up that you may need to determine your ailment or severity of your illness. It is very important that you follow up as instructed or that you return to the Emergency Department should you have concerns or if your condition changes or worsens in any way. Coding Level of Care Code ED Golf Ball Marker for Elmer Weaver Exam Comprehensive
[2021-07-29 18:52] VITALS: BP 129/82; PULSE 112; RESP 16; O2SAT 98
[2021-07-29 19:29] VITALS: BP 129/82
== END 2021-07-29 19:30 | disposition home or self-care (01) ==
PROVIDERS: Emergency Provider Physician Assistant; PCP Family Medicine
DX: L50.9 Urticaria, unspecified (principal)
CPT/HCPCS: 96372; 99283; J2930

== ENCOUNTER → 2022-10-20 16:30 | Outpatient (BNVA) | payer BC, MEDICAID, SELFPAY | PROVIDERS: PCP Family Medicine; Visit Provider Nurse Practitioner Women's Health | DX: Z01.419 Encounter for gynecological examination (general) (routine) without abnormal findings (principal); N76.0 Acute vaginitis | CPT/HCPCS: 88175 ==

== ENCOUNTER 2023-02-23 11:29 | Emergency (ER) | payer BC, MEDICAID, SELFPAY ==
[2023-02-23 11:35] VITALS: BMI 41.5
[2023-02-23 11:39] VITALS: BP 131/88; PULSE 100; RESP 16; TEMP 36.7; O2SAT 98
--- NOTE | 2023-02-23 12:03 | ED_ITS ---
HPI - Allergic Reaction General: Chief complaint: Allergic Reaction Stated complaint: possible allergic reaction-hives, cough Time Seen by Provider: 02/23/23 11:48 History of Present Illness: HPI narrative: Patient is a 22-year-old female who comes to the ED with a pruritic rash. Patient says she has had similar rash once before. Symptoms started yesterday. She gets a generalized rash that appears like hives and is very itchy. Rash spreads all throughout her body. She states that the rash will come and go throughout the day. She is also having itching rash that causes some pain as well in her hands bilaterally. Denies any past allergic reactions. Denies any changes in soaps, lotions, detergents. Denies any lip or tongue swelling, throat tightening, trouble breathing, nausea/vomiting or diarrhea. Denies any recent change in medications. Associated symptoms: Deny abdominal pain, nausea or vomiting Review of Systems Const: Denies: fever(s), chills or fatigue Eyes: Denies: change in vision or eye discomfort ENMT: Denies: throat pain, odynophagia, nasal discharge or nasal congestion Card: Denies: chest pain, palpitations, edema, swelling of feet/ankles, dyspnea on exertion or orthopnea Resp: Denies: dyspnea, productive cough or non-productive cough GI: Denies: abdominal pain, nausea, vomiting, diarrhea, constipation or hematochezia : Denies: flank pain, dysuria or hematuria Musc: Denies: neck pain, back pain or extremity swelling Skin/Breast: Reports: rash and pruritus; Denies: new lesions Neuro: Denies: headache(s), numbness in extremities or weakness in extremities PFS ED PFSH: Medical History No pertinent past medical history Denies diabetes, asthma, hypertension, seizures, DVT/PE. PCP: Mine Combs Surgical History No pertinent past surgical history Family History Grandfather Heart disease Maternal Hypertension Maternal Mother Heart disease SVT Denies family history of Colon cancer Ovarian cancer Diabetes Breast cancer Uterine cancer Thyroid disease Stroke Social History Substance/Drug Use: never Female Reproductive History: Date of last menstrual period: 02/23/23 Physical Exam Const: COMMON NORMALS: no acute distress, patient oriented x3, healthy appearing and alert HENMT: COMMON NORMALS: normocephalic HEAD & SCALP: normocephalic MOUTH: Normal oral and palatal mucosa present THROAT: posterior oropharynx normal and uvula midline Neck/C-Spine: COMMON NORMALS: supple GENERAL: Yes normal visual inspection Resp: COMMON NORMALS: normal respiratory effort, No retractions, No use of accessory muscles and clear to auscultation bilaterally AUSCULTATION: clear to auscultation bilaterally Cardio: COMMON NORMALS: regular rate, regular rhythm, S1 normal heart sound present, S2 normal heart sound present, No gallops present (Cardio), No clicks present (Cardio), No murmurs present (Cardio) and Peripheral pulses 2+ throughout RATE: regular rate RHYTHM: regular rhythm HEART SOUNDS: S1 normal heart sound present and S2 normal heart sound present PERIPHERAL PULSES: Peripheral pulses 2+ throughout GI: COMMON NORMALS: Normal to inspection, nondistended, normoactive bowel sounds present, Soft to palpation, non-tender and no masses PALPATION: Yes Soft to palpation : COMMON NORMALS: Yes no CVA tenderness BLADDER/KIDNEY EXAM: Yes no CVA tenderness Back/Pelvis: COMMON NORMALS: no CVA tenderness Extremity: COMMON NORMALS: normal to inspection Neuro: COMMON NORMALS: patient oriented x3 SENSORIUM/ORIENTATION: Yes alert GAIT: Yes Normal gait present Skin: NARRATIVE SKIN EXAM: Patient has maculopapular erythemic rash on bilateral palms of hands. Patient also has hives type rash on legs and chest. GENERAL SKIN EXAM: dry skin Course Vital Signs: Vital signs: Vital Signs Temperature 98.0 F 02/23/23 11:39 Pulse Rate 100 02/23/23 11:39 Respiratory Rate 16 02/23/23 11:39 Blood Pressure 131/88 02/23/23 11:39 Pulse Oximetry 98 02/23/23 11:39 Oxygen Delivery Me thod Room Air 02/23/23 11:39 MDM - Allergic Reaction Medical Decision Making Patient is a 22-year-old female who comes to the ED with a pruritic rash. Patient says she has had similar rash once before. Symptoms started yesterday. She gets a generalized rash that appears like hives and is very itchy. Rash spreads all throughout her body. She states that the rash will come and go throughout the day. She is also having itching rash that causes some pain as well in her hands bilaterally. Denies any past allergic reactions. Denies any changes in soaps, lotions, detergents. Denies any lip or tongue swelling, throat tightening, trouble breathing, nausea/vomiting or diarrhea. Denies any recent change in medications. Vital stable. Patient appears nontoxic in no acute distress or pain. Patient has maculopapular erythemic rash on bilateral palms of hands. Patient also has hives type rash on legs and chest. Patient was diagnosed with an urticarial rash and was given a dose of IM Decadron. Told to follow-up with her PCP within the next week for reevaluation. She was told to continue taking her previously prescribed medication. Patient understood and agreed with plan. Discharge Plan Discharge Patient Disposition: Home Clinical Impression: Urticarial rash Condition: Stable Prescriptions: No Action prednisone 20 mg tablet 40 mg PO DAILY 5 Days Qty: 10 0RF Discharge Orders: Discharge ED (Routine); Ordered 02/23/23 Ordered By: José Enciso Referrals: Mine Combs FNP [Primary Care Provider] - Discharge Diet: Regular Discharge Activity: Increase activity as tolerated Patient Instructions: Urticaria (ED) Activity Restrictions/Additional Instructions: Follow-up with medical provider as directed in the next 3 to 5 days for reevaluation. Start taking your prescribed prednisone tomorrow. You can continue taking pswl-[id number] Benadryl as needed approximately 3 times a day. Return to the ER or your medical provider if condition worsens. Please read and understand discharge instructions. Thank you for choosing [facility] for your healthcare needs today. Please realize this is an emergency room and that we are providing you with a medical screening exam and this may not be complete and all inclusive of all the testing and or work up that you may need to determine your ailment or severity of your illness. It is very important that you follow up as instructed or that you return to the Emergency Department should you have concerns or if your condition changes or worsens in any way. Coding Level of Care Code ED Digital Analytics Manager for Elmer Weaver
[2023-02-23] MEDS: dexamethasone 10 mg/mL INJ IM (12:08)
== END 2023-02-23 12:23 | disposition home or self-care (01) ==
PROVIDERS: Emergency Provider Physician Assistant; PCP Nurse Practitioner Family
DX: L50.9 Urticaria, unspecified (principal)
CPT/HCPCS: 96372; 99284; J1100

== ENCOUNTER 2023-02-25 17:52 | Emergency (ER) | payer BC, MEDICAID, SELFPAY ==
[2023-02-25 17:57] VITALS: BP 155/95; PULSE 106; TEMP 36.9; O2SAT 99; BMI 42.4
--- NOTE | 2023-02-25 18:13 | W.ED.ALLEREA ---
HPI - Allergic Reaction General: Chief complaint: Allergic Reaction Stated complaint: allergic reaction Time Seen by Provider: 02/25/23 18:13 History of Present Illness: HPI narrative: Ms. Kyle is a 22-year-old lady presenting the emergency department for recurrent allergic reaction. She notes hives which began all over her body on 02/22. She subsequently was seen and treated with steroids. She had ED visit on 02/23 with additional medications however today started noticing throat tightness with shortness of breath as well as recurrent of hives. She presented to urgent care was given Solu-Medrol, Benadryl, and epinephrine with some improvement though not complete resolution symptoms. Currently endorses scratchy feeling throat. Denies known environmental changes or source of allergic reaction. Has had hives in the past but nothing like this. No other specific changes in health, exacerbating, or alleviating factors identified. Onset (ago): day(s) Treatment prior to arrival: benadryl, epinephrine and steroids Review of Systems General: Reports: 10 or more systems reviewed and unremarkable except in HPI and below ENMT: Denies: uvular edema PFSH ED PFSH: Medical History No pertinent past medical history Denies diabetes, asthma, hypertension, seizures, DVT/PE. PCP: Mine Combs Surgical History No pertinent past surgical history Family History Grandfather Heart disease Maternal Hypertension Maternal Mother Heart disease SVT Denies family history of Colon cancer Ovarian cancer Diabetes Breast cancer Uterine cancer Thyroid disease Stroke Social History Substance/Drug Use: never Physical Exam Const: COMMON NORMALS: alert GENERAL APPEARANCE: cooperative and well developed HENMT: COMMON NORMALS: normocephalic and atraumatic HEAD & SCALP: normocephalic and atraumatic THROAT: posterior oropharynx normal and uvula midline; no uvular edema Eye: COMMON NORMALS: conjunctivae normal CONJUNCTIVA: Yes conjunctivae normal SCLERA: sclerae normal Neck/C-Spine: COMMON NORMALS: supple GENERAL: Yes trachea midline Resp: COMMON NORMALS: clear to auscultation bilaterally EFFORT & INSPECTION: Yes able to speak in complete sentences AUSCULTATION: clear to auscultation bilaterally Cardio: COMMON NORMALS: regular rhythm RATE: tachycardic RHYTHM: regular rhythm GI: COMMON NORMALS: Soft to palpation PALPATION: Yes Soft to palpation and No Tenderness to palpation present (GI) Extremity: GENERAL: Yes normal exam except as noted and No edema Neuro: COMMON NORMALS: moves all extremities SENSORIUM/ORIENTATION: Yes alert and No Orientation impaired Psych: COMMON NORMALS: mental status grossly normal and Normal thought process present THOUGHT PROCESS: Normal thought process present Course Vital Signs: Vital signs: Vital Signs Temperature 98.4 F 02/25/23 17:57 Pulse Rate 110 H 02/25/23 18:42 Respiratory Rate 16 02/25/23 18:42 Blood Pressure 155/95 02/25/23 17:57 Pulse Oximetry 97 02/25/23 18:42 Oxygen Delivery Me thod Room Air 02/25/23 18:42 MDM - Allergic Reaction Medical Decision Making 22-year-old lady presenting with allergic reaction status post treatment for anaphylaxis with largely improved symptoms. Exam as above. Minimal leukocytosis likely reactive, no significant metabolic abnormalities. Patient treated with Toradol, Pepcid, IV fluids and had continued and sustained improvement in symptoms. Plan to continue treatment for severe allergic reaction in the outpatient setting. The results of ED evaluation were discussed with the patient including prescriptions and/or symptomatic cares (if applicable) including appropriate and responsible use, followup plan, and strict return precautions. The patient verbalized understanding and felt safe for discharge. Medical Records I reviewed the patient's medical records. Lab Data I reviewed the patient's lab results. 02/25/23 18:32 02/25/23 19:19 Laboratory Results WBC 11.8 10^3/uL (4.0-10.0) H 02/25/23 18:32 RBC 4.80 10^6/uL (4.1-5.3) 02/25/23 18:32 Hgb 13.0 g/dL (11.5-15.3) 02/25/23 18: Hct 41.2 % (37.0-47.0) 02/25/23 18: MCV 85.8 fl (81-99) 02/25/23 18: MCH 27.1 pg (28.0-34.0) L 02/25/23 18:32 MCHC 31.6 g/dL (30.0-36.0) 02/25/23 18:32 RDW 14.3 % (12.1-15.1) 02/25/23 18:32 Plt Count 352 10^3/cmm (130-400) 02/25/23 18:32 MPV 10.9 fL (7.4-10.4) H 02/25/23 18:32 Neut % (Auto) 66.9 % 02/25/23 18:32 Lymph % (Auto) 23.1 % 02/25/23 18:32 [place] % (Auto) 7.2 % 02/25/23 18: Eos % (Auto) 1.9 % 02/25/23 18: Baso % (Auto) 0.6 % 02/25/23 18:32 Neut # (Auto) 7.86 10^3/uL (1.8-7.7) H 02/25/23 18:32 Lymph # (Auto) 2.7 10^3/uL (0.8-4.8) 02/25/23 18:32 [place] # (Auto) 0.9 10^3/uL (0.2-0.9) 02/25/23 18:32 Eos # (Auto) 0.2 10^3/uL (0.0-0.8) 02/25/23 18:32 Baso # (Auto) 0.1 10^3/uL (0.0-0.1) 02/25/23 18: Nucleated RBC % (auto) 0 % 02/25/23 18: Nucleated RBCs # 0.0 /100WBC 02/25/23 18:32 Sodium 140 mmol/L (136-145) 02/25/23 19:19 Potassium 3.8 mmol/L (3.5-5.1) 02/25/23 19:19 Chloride 106 mmol/L (98-107) 02/25/23 19:19 Carbon Dioxide 23 mmol/L (22-29) 02/25/23 19:19 Anion Gap 14.8 (5-19) 02/25/23 19:19 BUN 12 mg/dL (6-20) 02/25/23 19:19 Creatinine 0.7 mg/dL (0.5-0.9) 02/25/23 19:19 GFR Calculation 104.6 mL/min (90-130) 02/25/23 19:19 Glucose 141 mg/dL (65-115) H 02/25/23 19:19 Calculated Osmolality 292 mOsm/kg (285-295) 02/25/23 19:19 Calcium 8.4 mg/dL (8.5-10.5) L 02/25/23 19:19 Total Bilirubin 0.3 mg/dL (0.15-1.2) 02/25/23 19:19 AST 14 U/L (0-32) 02/25/23 19:19 ALT 8 U/L (0-33) 02/25/23 19:19 Alkaline Phosphatase 67 U/L (35-105) 02/25/23 19:19 Total Protein 6.4 g/dL (6.6-8.7) L 02/25/23 19:19 Albumin 3.8 g/dL (3.5-5.2) 02/25/23 19:19 Globulin 2.6 g/dL (1.3-4.6) 02/25/23 19:19 Discharge Plan Discharge Patient Disposition: Home Clinical Impression: Allergic reaction Condition: Stable Prescriptions: New Medrol (Gil) 4 mg tablets,dose pack See Rx Instructions .ROUTE .COMPLEX Qty: 21 0RF Rx Instructions: orally per package directions after completion of prior rx EpiPen 2-Gil 0.3 mg/0.3 mL auto-injector 0.3 mg IM Q10M PRN (Reason: anaphylaxis) Qty: 2 3RF Rx Instructions: for 2 doses No Action prednisone 20 mg tablet 40 mg PO DAILY 5 Days Qty: 10 0RF Discharge Orders: Discharge ED (Routine); Ordered 02/25/23 Ordered By: Philip Gomes Referrals: Mine Combs FNP [Primary Care Provider] - Discharge Diet: Usual diet Discharge Activity: Resume usual activity Patient Instructions: Epinephrine (By injection) (Adrenaclick, Adrenalin, EpiPen,..., Anaphylaxis (ED) Activity Restrictions/Additional Instructions: Thank you for visiting the emergency department. You were seen and evaluated for allergic reaction. The exact cause your symptoms is unclear. We are pleased that you had improvement with treatment. I will message case management for referral for immunology/allergy testing. Please also follow-up with your primary care provider. I will prescribe additional steroids, Pepcid, and you may continue Benadryl as directed on packaging. I will also prescribe EpiPen for recurrent severe reaction. Return for recurrent symptoms or anything else that you are concerned about and feel needs emergency department evaluation. Coding Level of Care Code ED Occupational Medicine Physician for Elmer eWaver
[2023-02-25] MEDS: famotidine 20 mg/2 mL INJ 40 MG IVP (18:39)
[2023-02-25] MEDS: sodium chloride 0.9% 1,000 ML 999 ML IV (18:40)
[2023-02-25] MEDS: ketorolac 30 mg/mL INJ 15 MG IVP (18:41)
[2023-02-25 18:42] VITALS: PULSE 110; RESP 16; O2SAT 97
--- NOTE | 2023-02-25 18:43 | PC.NURSE ---
IV MEDS PUSHED BY PAULETTE ZARATE. RN
[2023-02-25 18:44] LABS: Basophils # 0.1 10^3/uL (0.0-0.1); Basophils % 0.6 %; Eosinophils # 0.2 10^3/uL (0.0-0.8); Eosinophils % 1.9 %; Hematocrit 41.2 % (37.0-47.0); Lymphocytes # 2.7 10^3/uL (0.8-4.8); Lymphocytes % 23.1 %; Mean Corpuscular HGB Conc 31.6 g/dL (30.0-36.0); Mean Corpuscular Hemoglobin 27.1 pg (28.0-34.0); Mean Corpuscular Volume 85.8 fl (81-99); Mean Platelet Volume 10.9 fL (7.4-10.4); Monocytes # 0.9 10^3/uL (0.2-0.9); Monocytes % 7.2 %; Neutrophils # 7.86 10^3/uL (1.8-7.7); Neutrophils % 66.9 %; Nucleated Red Blood Cells % 0 %; Platelet Count 352 10^3/cmm (130-400); Red Cell Distribution Width 14.3 % (12.1-15.1); White Blood Count 11.8 10^3/uL (4.0-10.0)
[2023-02-25 19:45] LABS: Alanine Aminotransferase 8 U/L (0-33); Albumin Level 3.8 g/dL (3.5-5.2); Alkaline Phosphatase 67 U/L (35-105); Blood Urea Nitrogen 12 mg/dL (6-20); Calcium 8.4 mg/dL (8.5-10.5); Carbon Dioxide 23 mmol/L (22-29); Chloride 106 mmol/L (98-107); Globulin 2.6 g/dL (1.3-4.6); Glomerular Filtration Rate 104.6 mL/min (90-130); Glucose 141 mg/dL (65-115); Osmolality Calculated 292 mOsm/kg (285-295); Sodium 140 mmol/L (136-145); Total Bilirubin 0.3 mg/dL (0.15-1.2); Total Protein 6.4 g/dL (6.6-8.7)
[2023-02-25 19:51] LABS: Anion Gap 14.8 (5-19); Aspartate Amino Transferase 14 U/L (0-32); Potassium 3.8 mmol/L (3.5-5.1)
--- NOTE | 2023-03-01 15:35 | DCPLANNER ---
Addendum entered by Nadia Newberry 03/09/23 10:54: mobile product manager called the office of Dr. Bear to confirm that clinic received patients information - case worker was told that patients information had been received. Clinic will call patient with appointment information. Original Note: mobile product manager had message to refer patient for immunology/allergy testing. mobile product manager faxed patients information to [facility]. Patients information will be reviewed, clinic will call patient with appointment information.
== END 2023-02-25 22:20 | disposition home or self-care (01) ==
PROVIDERS: Emergency Provider Emergency Medicine; PCP Nurse Practitioner Family
DX: T78.40XA Allergy, unspecified, initial encounter (principal); X58.XXXA Exposure to other specified factors, initial encounter
CPT/HCPCS: 80053; 85025; 96361; 96374; 96375; 99284; J1885; J3490; J7030

== ENCOUNTER 2023-05-21 16:23 | Day surgery (SDC) | payer MEDICAID, SELFPAY ==
[2023-05-21] VITALS (16 sets, daily range): BP systolic 104–136; BP diastolic 56–91; PULSE 70–128; RESP 12–20; TEMP 36.1–36.8; O2SAT 92–100; BMI 43.6
--- NOTE | 2023-05-21 17:26 | CTR_ITS ---
PROCEDURE INFORMATION: Exam: CT Abdomen And Pelvis With Contrast Exam date and time: 05/21/2023 6:20 PM Age: 22 years old Clinical indication: Nausea and vomiting; Abdominal pain; Rebound pain; Right lower quadrant (rlq); Additional info: Rlq abdominal pain TECHNIQUE: Imaging protocol: Computed tomography of the abdomen and pelvis with contrast. Axial, coronal and sagittal reformatted images were created and reviewed. Radiation optimization: All CT scans at this facility use at least one of these dose optimization techniques: automated exposure control; mA and/or kV adjustment per patient size (includes targeted exams where dose is matched to clinical indication); or iterative reconstruction. Contrast material: OMNI 350; Contrast volume: 100 ml; Contrast route: INTRAVENOUS (IV); REPORTING DATA: Count of CT and Cardiac NM exams in prior 12 months: This patient has received 0 known CTs and 0 known cardiac nuclear medicine studies in the 12 months prior to the current study. COMPARISON: CT abdomen pelvis w con* [id number] 04/02/2020 7:49 PM RADIATION DOSE METRICS: Total DLP (mGy-cm): 1153.23 FINDINGS: Liver: Unremarkable. Gallbladder and bile ducts: No radiodense gallstones. No biliary ductal dilatation. Pancreas: Unremarkable. Spleen: Unremarkable. Adrenal glands: Normal. No mass. Kidneys and ureters: No mass. No radiodense calculi. No hydronephrosis. Stomach and bowel: No bowel wall thickening. No obstruction. No pneumatosis. Appendix: Dilated, thickwalled, hyperemic retrocecal appendix with mild periappendiceal inflammatory change. Intraperitoneal space: No free fluid. No organized fluid collection. No free air. Vasculature: Unremarkable. No aneurysm. Lymph nodes: Small mesenteric lymph nodes, likely reactive. No pathologically enlarged lymph nodes. Urinary bladder: Unremarkable as visualized. Reproductive: Probable involuting right ovarian corpus luteal cyst versus dominant follicle. Bones/joints: No acute osseous abnormality. Mild degenerative changes. Soft tissues: Tiny, fat containing umbilical hernia. CT/CT abdomen pelvis w con* [id number] IMPRESSION: 1. Acute retrocecal appendicitis. No abscess, obstruction or free air. 2. Additional findings, as above.
--- NOTE | 2023-05-21 17:30 | W.ED.ABDPA2 ---
HPI - Abdominal Pain General: Chief Complaint: Abdominal Pain Stated Complaint: lower right abd pain Time Seen by Provider: 05/21/23 16:58 History of Present Illness: 22-year-old female presents from the clinic chief complaint of having ongoing right lower quadrant abdominal pain that started since about 10 or so a.m. patient does not endorse any prior history of any abdominal surgeries does not report any urinary symptoms with this or vaginal bleeding she endorses severe pain located to the right lower abdomen. Patient Dors is moderate nausea with no vomiting does not endorse any recent fevers or chills patient presents to the ER for further concerns of possible underlying acute appendicitis. Associated Symptoms: Reports nausea; Denies chills, fever(s) and vomiting Review of Systems General: Reports: 10 or more systems reviewed and unremarkable except in HPI and below Const: Denies: fever(s), chills, fatigue or malaise Eyes: Denies: change in vision or blurry vision Card: Denies: chest pain or palpitations Resp: Denies: dyspnea or productive cough GI: Reports: abdominal pain and nausea; Denies: vomiting : Denies: flank pain Musc: Denies: extremity pain or extremity swelling Skin/Breast: Denies: rash or pruritus Neuro: Denies: headache(s) Psych: Denies: anxiety or depression Gerardo/Lymph: Denies: easy bleeding All/Imm: Denies: urticaria, throat swelling or facial swelling PFSH ED PFSH: Medical History No pertinent past medical history Denies diabetes, asthma, hypertension, seizures, DVT/PE. PCP: Mine Combs Surgical History No pertinent past surgical history Family History Grandfather Heart disease Maternal Hypertension Maternal Mother Heart disease SVT Denies family history of Colon cancer Ovarian cancer Diabetes Breast cancer Uterine cancer Thyroid disease Stroke Social History Substance/Drug Use: never Physical Exam Narrative: EXAM NARRATIVE: Patient appears to be in moderate distress due to pain however nontoxic-appearing Const: COMMON NORMALS: no acute distress, patient oriented x3 and healthy appearing HENMT: COMMON NORMALS: normocephalic and atraumatic HEAD & SCALP: normocephalic and atraumatic Eye: COMMON NORMALS: Equal, round and reactive pupils present and EOMs intact bilaterally PUPIL: Yes Equal, round and reactive pupils present Neck/C-Spine: COMMON NORMALS: full ROM, supple and no JVD Lymph: LYMPHATIC: no lymphadenopathy noted Chest: COMMONS NORMALS: normal inspection of the chest and normal palpation of entire chest wall Resp: COMMON NORMALS: normal respiratory effort, No retractions and clear to auscultation bilaterally EFFORT & INSPECTION: Yes able to speak in complete sentences and Yes symmetric chest movement AUSCULTATION: clear to auscultation bilaterally Cardio: COMMON NORMALS: no JVD, regular rate and regular rhythm RATE: regular rate RHYTHM: regular rhythm GI: COMMON NORMALS: negative for non-tender (Moderate tenderness appreciated to the right lower quadrant with guarding n) : COMMON NORMALS: Yes no CVA tenderness BLADDER/KIDNEY EXAM: Yes no CVA tenderness Back/Pelvis: COMMON NORMALS: no CVA tenderness Extremity: COMMON NORMALS: normal to inspection and full ROM Neuro: COMMON NORMALS: patient oriented x3, CN's II-XII intact bilaterally, moves all extremities and no focal motor deficits Psych: COMMON NORMALS: mental status grossly normal, Normal thought process present, cooperative and normal affect THOUGHT PROCESS: Normal thought process present Skin: COMMON NORMALS: no rashes or lesions noted GENERAL SKIN EXAM: no rashes or lesions noted Course Vital Signs: Vital signs: Vital Signs Temperature 98.2 F 05/21/23 17:07 Pulse Rate 128 H 05/21/23 20:01 Respiratory Rate 16 05/21/23 20:01 Blood Pressure 122/83 05/21/23 20:01 Pulse Oximetry 100 05/21/23 20:01 Oxygen Delivery Me thod Room Air 05/21/23 17:46 MDM - Abdominal Pain Medical Decision Making On physical exam underlying concerns acute appendicitis are prominent and IV was established medication provided for the patient's pain and nausea lab work and imaging will be obtained we will continue to follow. Lab work revealed that the patient have leukocytosis and slightly elevated CRP patient on CT imaging was found of a retrocecal acute appendicitis with no perforation or abscess discussed the patient's case with Dr. Hernández on-call general surgeon that we will admit the patient in which the patient may going [facility]. Patient was started on Zosyn as well as additional pain medication noted and nausea medications were ordered, patient and her family were updated that are agreeable to admission. Lab Data 05/21/23 17:50 05/21/23 17:50 Labs/Radiology: Radiology Impressions Abdomen/Pelvis CT 05/21/23 17:26 IMPRESSION: 1. Acute retrocecal appendicitis. No abscess, obstruction or free air. 2. Additional findings, as above. ADDENDUM: 05/21/231902 ADDENDUM: THIS REPORT CONTAINS FINDINGS THAT MAY BE CRITICAL TO PATIENT CARE. As of 7:02 PM CDT on 05/21/2023, DENVER MILLER confirmed receipt the exam report, is aware of the critical finding and indicated no conference call was necessary to discussed the exam findings. Laboratory Results WBC 15.04 10^3/uL (3.29-11.43) H 05/21/23 17:50 RBC 4.85 10^6/uL (3.85-5.65) 05/21/23 17:50 Hgb 13.70 g/dL (11.27-16.99) 05/21/23 17:50 Hct 41.5 % (36-47) 05/21/23 17:50 MCV 85.6 fl (85-98) 05/21/23 17:50 MCH 28.2 pg (27-33) 05/21/23 17:50 MCHC 33.0 g/dL (30-55) 05/21/23 17:50 RDW 13.4 % (12.1-15.1) 05/21/23 17:50 Plt Count 354 10^3/cmm (157-399) 05/21/23 17:50 MPV 10.2 fL (7.4-10.4) 05/21/23 17:50 Neut % (Auto) 80.6 % 05/21/23 17:50 Lymph % (Auto) 13.0 % 05/21/23 17:50 Frederick % (Auto) 5.2 % 05/21/23 17:50 Eos % (Auto) 0.7 % 05/21/23 17:50 Baso % (Auto) 0.3 % 05/21/23 17:50 Neut # (Auto) 12.13 10^3/uL (1.8-7.7) H 05/21/23 17:50 Lymph # (Auto) 2.0 10^3/uL (0.8-4.8) 05/21/23 17:50 Frederick # (Auto) 0.8 10^3/uL (0.2-0.9) 05/21/23 17:50 Eos # (Auto) 0.1 10^3/uL (0.0-0.8) 05/21/23 17:50 Baso # (Auto) 0.1 10^3/uL (0.0-0.1) 05/21/23 17:50 Nucleated RBC % (auto) 0 % 05/21/23 17:50 Nucleated RBCs # 0.0 /100WBC 05/21/23 17:50 Sodium 140 mmol/L (136-145) 05/21/23 17:50 Potassium 3.9 mmol/L (3.5-5.1) 05/21/23 17:50 Chloride 102 mmol/L (98-107) 05/21/23 17:50 Carbon Dioxide 28 mmol/L (22-29) 05/21/23 17:50 Anion Gap 13.9 (5-19) 05/21/23 17:50 BUN 9 mg/dL (6-20) 05/21/23 17:50 Creatinine 0.6 mg/dL (0.5-0.9) 05/21/23 17:50 GFR Calculation 125.0 mL/min (90-130) 05/21/23 17:50 Glucose 114 mg/dL (65-115) 05/21/23 17:50 Calculated Osmolality 290 mOsm/kg (285-295) 05/21/23 17:50 Calcium 9.1 mg/dL (8.5-10.5) 05/21/23 17:50 Total Bilirubin 0.4 mg/dL (0.15-1.2) 05/21/23 17:50 AST 13 U/L (0-32) 05/21/23 17:50 ALT 9 U/L (0-33) 05/21/23 17:50 Alkaline Phosphatase 79 U/L (35-105) 05/21/23 17:50 C-Reactive Protein 7.4 mg/L (0.0-4.9) H 05/21/23 17:50 Total Protein 7.4 g/dL (6.6-8.7) 05/21/23 17:50 Albumin 4.3 g/dL (3.5-5.2) 05/21/23 17:50 Globulin 3.1 g/dL (1.3-4.6) 05/21/23 17:50 HCG, Qual Negative (Negative) 05/21/23 17:50 Urine Color Yellow (Yellow) 05/21/23 17:50 Urine Appearance Sl hazy (CLEAR) A 05/21/23 17:50 Urine pH 6 (5-7) 05/21/23 17:50 Ur Specific [place] 1.020 (1.005-1.030) 05/21/23 17:50 Urine Protein Neg (Negative) 05/21/23 17:50 Urine Glucose (UA) Norm (Normal) 05/21/23 17:50 Urine Ketones Negative (Negative) 05/21/23 17:50 Urine Blood Neg (Negative) 05/21/23 17:50 Urine Nitrate Negative (Negative) 05/21/23 17:50 Urine Bilirubin Neg (Negative) 05/21/23 17:50 Urine Urobilinogen Neg mg/dL (Negative) 05/21/23 17:50 Ur Leukocyte Esterase Negative (Negative) 05/21/23 17:50 Urine RBC Rare /hpf (0-2) 05/21/23 17:50 Urine WBC 0-4 /hpf (0-5) H 05/21/23 17:50 Ur Squamous Epith Cells 10-15 /hpf (0-5) H 05/21/23 17:50 Amorphous Sediment Not Reportable 05/21/23 17:50 Urine Bacteria Trace /hpf (NONE) 05/21/23 17:50 All radiology interpretation(s) finalized by discharge Discharge Plan Discharge Patient Disposition: Admitted As Inpatient Clinical Impression: Acute appendicitis Condition: Stable Coding Level of Care Code ED [employer] for [employer]
[2023-05-21] MEDS: ondansetron 2 mg/ML SDV 2 mL 4 MG IVP (17:47)
[2023-05-21] MEDS: fentaNYL 50 mcg/mL INJ 2mL 100 MCG IVP (17:49)
[2023-05-21] MEDS: sodium chloride 0.9% 500 ML IV (17:52)
[2023-05-21 18:03] LABS: Basophils # 0.1 10^3/uL (0.0-0.1); Basophils % 0.3 %; Eosinophils # 0.1 10^3/uL (0.0-0.8); Eosinophils % 0.7 %; Hematocrit 41.5 % (36-47); Mean Corpuscular Hemoglobin 28.2 pg (27-33); Mean Corpuscular Volume 85.6 fl (85-98); Mean Platelet Volume 10.2 fL (7.4-10.4); Monocytes # 0.8 10^3/uL (0.2-0.9); Monocytes % 5.2 %; Neutrophils # 12.13 10^3/uL (1.8-7.7); Neutrophils % 80.6 %; Nucleated Red Blood Cells % 0 %; Platelet Count 354 10^3/cmm (157-399); Red Blood Count 4.85 10^6/uL (3.85-5.65); Red Cell Distribution Width 13.4 % (12.1-15.1); White Blood Count 15.04 10^3/uL (3.29-11.43)
[2023-05-21 18:12] LABS: HCG Qualitative Urine. Negative (Negative)
[2023-05-21] MEDS: iohexol 350 mg/mL 500 mL Btl (per mL) IV (18:17)
[2023-05-21 18:23] LABS: Alanine Aminotransferase 9 U/L (0-33); Albumin Level 4.3 g/dL (3.5-5.2); Alkaline Phosphatase 79 U/L (35-105); Anion Gap 13.9 (5-19); Aspartate Amino Transferase 13 U/L (0-32); Blood Urea Nitrogen 9 mg/dL (6-20); C Reactive Protein 7.4 mg/L (0.0-4.9); Calcium 9.1 mg/dL (8.5-10.5); Carbon Dioxide 28 mmol/L (22-29); Chloride 102 mmol/L (98-107); Globulin 3.1 g/dL (1.3-4.6); Glucose 114 mg/dL (65-115); Osmolality Calculated 290 mOsm/kg (285-295); Potassium 3.9 mmol/L (3.5-5.1); Sodium 140 mmol/L (136-145); Total Bilirubin 0.4 mg/dL (0.15-1.2); Total Protein 7.4 g/dL (6.6-8.7)
[2023-05-21 19:00] LABS: Add Urine Culture? No; Add Urine Microscopic? YES; Bacteria Urine TRACE /hpf; Bilirubin Urine Neg (Negative); Blood Urine Neg (Negative); Glucose Urine UA Norm (Normal); Ketones Urine Negative (Negative); Leukocyte Esterase Urine Negative (Negative); Nitrate Urine Negative (Negative); Protein Urine Neg (Negative); RBC Urine RARE /hpf (0-2); Urine Appearance SL Hazy (CLEAR); Urine Color Yellow (Yellow); Urobilinogen Urine Neg (Negative); WBC Urine 0-4 /hpf (0-5); pH Urine 6 (5-7)
[2023-05-21] MEDS: sodium chloride 0.9% 1,000 ML 75 ML IV (19:59)
--- NOTE | 2023-05-21 20:13 | P.HP_ITS ---
Providers/Chief Complaint Primary Care Provider: FATOU Berg Chief Complaint: lower right abd pain History of Present Illness Jacquelin Kyle is a 22 year old female who presented to the hospital with 1 day history of right lower quadrant abdominal pain. She reports that she was nauseous and had emesis but denies any hematemesis. Denies any fever or chills. She has right lower quadrant abdominal pain that is sharp and constant. Palpation makes pain worse. Nothing seems to make the pain better. She last ate at 11 AM today and has not drank anything since then. CT the abdomen pelvis shows acute appendicitis with a retrocecal appendix. Review of Systems General: Reports: 10 or more systems reviewed and unremarkable except in HPI and below Medications/Allergies Home Medications Medication Instructions Recorded Confirmed Last Taken Type epinephrine 0.3 mg/0.3 mL 0.3 mg (0.3 mL) IM Q10M PRN 02/25/23 05/21/23 Unknown Rx injection, auto-injector (EpiPen anaphylaxis #2 ea 2-Gil) Allergies Allergy/AdvReac Type Severity Reaction Status Date / Time latex Allergy ALGY-Bliste Verified 05/21/23 15:50 r PFSH Acute PFSH: Medical History No pertinent past medical history Denies diabetes, asthma, hypertension, seizures, DVT/PE. PCP: Mine Combs Surgical History No pertinent past surgical history Family History Grandfather Heart disease Maternal Hypertension Maternal Mother Heart disease SVT Denies family history of Colon cancer Ovarian cancer Diabetes Breast cancer Uterine cancer Thyroid disease Stroke Social History Substance/Drug Use: never Vitals/I&O/Wt Last Vital Signs Temp 98.2 F 05/21/23 17:07 Pulse 128 H 05/21/23 20:01 Resp 16 05/21/23 20:01 BP 122/83 05/21/23 20:01 Pulse Ox 100 05/21/23 20:01 O2 Del Method Room Air 05/21/23 17:46 Weight last 48 hrs Weight 262 lb Physical Exam Narrative: General : Patient is well developed , no acute distress, oriented x3 Head : Normal cephalic, a-traumatic. Ears : Pinnae and external canal are normal. Hearing is normal. Eyes : PERRLA, Sclera and injection are normal. No conjunctival discharge. Nose : Mucous membranes are without erythema. Throat : buccal mucosa is normal, gums are without significant recession or hypertrophy. Lungs : Equal chest rise bilaterally, no use of accessory muscles, trachea is midline. Cor : Rate and rhythm are normal. Abdomen : Soft, ND, tender to palpation right lower quadrant, negative Rovsing's, no g/r/m Extremities : No edema, no cyanosis or clubbing, dorsalis pedis pulses are pres ent bilaterally, non-tender to palpation of calves. Upper extremities are normal bilaterally. Back : non-tender to palpation, no CVA tenderness. Neuro : CN II - XII intact, Upper and lower extremities have equal and full strength Data 05/21/23 17:50 05/21/23 17:50 A&P Assessment and plan (1) Acute appendicitis: Plan Laparoscopic Appendectomy The risks and benefits of the procedure, including but not limited to, bleeding, infection, scar, numbness, pain, damage to surrounding structures, conversion to an open procedure, were explained to the patient. He is understanding of the risks and wishes to proceed. Attestations Medical Necessity Statement*: Patient may be discharged after the procedure unless appendicitis is superlative or perforated. Coding Level of Care Code 08960 Diagnoses Acute appendicitis K35.80
--- NOTE | 2023-05-21 20:13 | ANES.PREANE2 ---
Pre-Anesthetic Assessment Height/Weight: Height 1.65 m Weight 118.841 kg Temp Pulse Resp BP Pulse Ox O2 Del Method 98.2 F 128 H 16 122/83 100 Room Air 05/21/23 17:07 05/21/23 20:01 05/21/23 20:01 05/21/23 20:01 05/21/23 20:01 05/21/23 17:46 Operation Date: 05/21/23 20:00 Proposed Procedures p Laparoscopic Appendectomy(Not Applicable) - Richmond Hernández, Familial anesthetic complications: Mother is slow to wake up Last intake: 1200 - last vomited before noon. feeling only slightly nauseated currently. Social No alcohol and No tobacco Exam alert, oriented x 3, clear to auscultation bilaterally and regular rate & rhythm Airway Mallampati: Class II Dentition: full Anesthetic Plan ASA status: 2 Anesthesia: General Risk of > 500 ml blood loss (7ml/kg in children): No Other Pertinent Information Throat swelling and hives several times - perscribed epi pen but hasn't had to use it; unknown trigger Medications/Allergies Home Medications Medication Instructions Recorded Confirmed Last Taken Type epinephrine 0.3 mg/0.3 mL 0.3 mg (0.3 mL) IM Q10M PRN 02/25/23 05/21/23 Unknown Rx injection, auto-injector (EpiPen anaphylaxis #2 ea 2-Gil) Allergies Allergy/AdvReac Type Severity Reaction Status Date / Time latex Allergy ALGY-Bliste Verified 05/21/23 15:50 r Current Medications Generic Name Dose Route Start Last Admin Trade Name Freq PRN Reason Stop Dose Admin Sodium Chloride 1,000 mls @ 75 mls/hr 05/21/23 19:30 05/21/23 19:59 Sodium Chloride 0.9% IV 75 mls/hr .[id number] MIGUEL Administration PFSH Anesthesia Medical History No pertinent past medical history Denies diabetes, asthma, hypertension, seizures, DVT/PE. PCP: Mine Combs Surgical History No pertinent past surgical history Family History Grandfather Heart disease Maternal Hypertension Maternal Mother Heart disease SVT Denies family history of Colon cancer Ovarian cancer Diabetes Breast cancer Uterine cancer Thyroid disease Stroke Social History Substance/Drug Use: never Data Anesthesia 05/21/23 17:50 05/21/23 17:50 Short CBC 05/21/23 Range/Units 17:50 WBC 15.04 H (3.29-11.43) 10^3/uL Hgb 13.70 (11.27-16.99) g/dL Hct 41.5 (36-47) % MCV 85.6 (85-98) fl Plt Count 354 (157-399) 10^3/cmm Neut % (Auto) 80.6 % Neut # (Auto) 12.13 H (1.8-7.7) 10^3/uL BMP 05/21/23 17:50 Sodium 140 Potassium 3.9 Chloride 102 Carbon Dioxide 28 BUN 9 Creatinine 0.6 Glucose 114 Calcium 9.1 Liver Function 05/21/23 Range/Units 17:50 Total Bilirubin 0.4 (0.15-1.2) mg/dL AST 13 (0-32) U/L ALT 9 (0-33) U/L Alkaline Phosphatase 79 (35-105) U/L Albumin 4.3 (3.5-5.2) g/dL Urine 05/21/23 Range/Units 17:50 Urine Color Yellow (Yellow) Urine Appearance Sl hazy A (CLEAR) Urine pH 6 (5-7) Ur Specific [place] 1.020 (1.005-1.030) Urine Protein Neg (Negative) Urine Glucose (UA) Norm (Normal) Urine Ketones Negative (Negative) Urine Nitrate Negative (Negative) Urine Bilirubin Neg (Negative) Ur Leukocyte Esterase Negative (Negative) Urine RBC Rare (0-2) /hpf Urine WBC 0-4 H (0-5) /hpf Coags 05/21/23 17:50 C-Reactive Protein 7.4 H Cardiac Studies: No Data to Display
[2023-05-21] MEDS: piperacillin-tazobactam 4.5 GM in sodium chloride 0.9% (plus) 50 ML IV (20:20)
--- NOTE | 2023-05-21 20:54 | PM.OP ---
Operative Report Date of procedure: May 21, 2023 Pre-op diagnosis: Acute appendicitis Post-op diagnosis: same Procedure done: Laparoscopic appendectomy Implants: None Specimens removed/disposition: Appendix Surgeon: Richmond Hernández DO Anesthesia: General Estimated blood loss (mL): 5 Complications: None apparent Brief History: This very pleasant 22-year-old female came to the ER with abdominal pain. He was diagnosed with acute appendicitis. Laparoscopic appendectomy was indicated. The risk benefits were explained and documented. Procedure: Patient was wheeled into the operative room and placed on the OR table in a supine position. Abdomen was inspected prepped and draped in usual sterile fashion. Time-out was performed and all present were in agreement. A 15 blade scalp was used to make a stab incision in the left upper quadrant and intra-abdominal insufflation was achieved using a Veress needle. After localizing the tissue incisions were made and a 12 millimeter trocar was placed into the umbilicus as well as a 5mm in the right lower quadrant and a 5 mm in the left lower quadrant . The appendix was identified and was mildly inflamed. I used the Voyant to ligate the mesoappendix at the base. I then used 2 PDS endo-loops to snare the base of the appendix. I then used the Voyant to ligate the appendix distally. The appendix was removed from the abdomen using an Endo-Catch bag through the umbilical incision. I examined the abdomen and no further pathology was identified. Hemostasis was noted. I then closed the umbilical site with a Bartolo-Chris and 0 Vicryl suture in a figure of 8 fashion. All ports removed. Skin was washed and dried. Incisions were closed with 4 O Vicryl in a subcuticular interrupted fashion. Skin glue was applied. Patient tolerated the procedure well.
--- NOTE | 2023-05-21 20:55 | PM.DCS ---
Discharge Providers Date of Discharge: May 21, 2023 Attending Provider at Discharge: Richmond Hernández DO Primary Care Provider: FATOU Berg Diagnoses at Discharge Discharge Diagnosis (1) Acute appendicitis: Status: Acute Reason for Visit Reason for Visit: lower right abd pain Hospital Course Hospital Course Is a very pleasant 22-year-old female who came to the emergency room and was diagnosed with acute appendicitis. She underwent laparoscopic appendectomy and was discharged home in good condition Physical Exam Narrative: General : Patient is well developed , no acute distress, oriented x3 Head : Normal cephalic, a-traumatic. Ears : Pinnae and external canal are normal. Hearing is normal. Eyes : PERRLA, Sclera and injection are normal. No conjunctival discharge. Nose : Mucous membranes are without erythema. Throat : buccal mucosa is normal, gums are without significant recession or hypertrophy. Lungs : Equal chest rise bilaterally, no use of accessory muscles, trachea is midline. Cor : Rate and rhythm are normal. Abdomen : Soft, ND, appropriately tender, no g/r/m Extremities : No edema, no cyanosis or clubbing, dorsalis pedis pulses are present bilaterally, non-tender to palpation of calves. Upper extremities are normal bilaterally. Back : non-tender to palpation, no CVA tenderness. Neuro : CN II - XII intact, Upper and lower extremities have equal and full strength Discharge Data Studies Completed and Pending Completed Studies During Hospitalization Category Date Time Status CT abdomen pelvis w con* [id number] Stat Cat Scan 05/21/23 17:26 Completed Radiology Impressions Abdomen/Pelvis CT 05/21/23 17:26 IMPRESSION: 1. Acute retrocecal appendicitis. No abscess, obstruction or free air. 2. Additional findings, as above. ADDENDUM: 05/21/231902 ADDENDUM: THIS REPORT CONTAINS FINDINGS THAT MAY BE CRITICAL TO PATIENT CARE. As of 7:02 PM CDT on 05/21/2023, DENVER MILLER confirmed receipt the exam report, is aware of the critical finding and indicated no conference call was necessary to discussed the exam findings. Laboratory Results WBC 15.04 10^3/uL (3.29-11.43) H 05/21/23 17:50 RBC 4.85 10^6/uL (3.85-5.65) 05/21/23 17:50 Hgb 13.70 g/dL (11.27-16.99) 10/20/23 17:50 Hct 41.5 % (36-47) 05/21/23 17:50 MCV 85.6 fl (85-98) 05/21/23 17:50 MCH 28.2 pg (27-33) 05/21/23 17:50 MCHC 33.0 g/dL (30-55) 05/21/23 17:50 RDW 13.4 % (12.1-15.1) 05/21/23 17:50 Plt Count 354 10^3/cmm (157-399) 05/21/23 17:50 MPV 10.2 fL (7.4-10.4) 05/21/23 17:50 Neut % (Auto) 80.6 % 05/21/23 17:50 Lymph % (Auto) 13.0 % 05/21/23 17:50 [place]ane % (Auto) 5.2 % 05/21/23 17:50 Eos % (Auto) 0.7 % 05/21/23 17:50 Baso % (Auto) 0.3 % 05/21/23 17:50 Neut # (Auto) 12.13 10^3/uL (1.8-7.7) H 05/21/23 17:50 Lymph # (Auto) 2.0 10^3/uL (0.8-4.8) 05/21/23 17:50 Crane # (Auto) 0.8 10^3/uL (0.2-0.9) 05/21/23 17:50 Eos # (Auto) 0.1 10^3/uL (0.0-0.8) 05/21/23 17:50 Baso # (Auto) 0.1 10^3/uL (0.0-0.1) 05/21/23 17:50 Nucleated RBC % (auto) 0 % 05/21/23 17:50 Nucleated RBCs # 0.0 /100WBC 05/21/23 17:50 Sodium 140 mmol/L (136-145) 05/21/23 17:50 Potassium 3.9 mmol/L (3.5-5.1) 05/21/23 17:50 Chloride 102 mmol/L (98-107) 05/21/23 17:50 Carbon Dioxide 28 mmol/L (22-29) 05/21/23 17:50 Anion Gap 13.9 (5-19) 05/21/23 17:50 BUN 9 mg/dL (6-20) 05/21/23 17:50 Creatinine 0.6 mg/dL (0.5-0.9) 05/21/23 17:50 GFR Calculation 125.0 mL/min (90-130) 05/21/23 17:50 Glucose 114 mg/dL (65-115) 05/21/23 17:50 Calculated Osmolality 290 mOsm/kg (285-295) 05/21/23 17:50 Calcium 9.1 mg/dL (8.5-10.5) 05/21/23 17:50 Total Bilirubin 0.4 mg/dL (0.15-1.2) 05/21/23 17:50 AST 13 U/L (0-32) 05/21/23 17:50 ALT 9 U/L (0-33) 05/21/23 17:50 Alkaline Phosphatase 79 U/L (35-105) 05/21/23 17:50 C-Reactive Protein 7.4 mg/L (0.0-4.9) H 05/21/23 17:50 Total Protein 7.4 g/dL (6.6-8.7) 05/21/23 17:50 Albumin 4.3 g/dL (3.5-5.2) 05/21/23 17:50 Globulin 3.1 g/dL (1.3-4.6) 05/21/23 17:50 HCG, Qual Negative (Negative) 05/21/23 17:50 Urine Color Yellow (Yellow) 05/21/23 17:50 Urine Appearance Sl hazy (CLEAR) A 05/21/23 17:50 Urine pH 6 (5-7) 05/21/23 17:50 Ur Specific [place] 1.020 (1.005-1.030) 05/21/23 17:50 Urine Protein Neg (Negative) 05/21/23 17:50 Urine Glucose (UA) Norm (Normal) 05/21/23 17:50 Urine Ketones Negative (Negative) 05/21/23 17:50 Urine Blood Neg (Negative) 05/21/23 17:50 Urine Nitrate Negative (Negative) 05/21/23 17:50 Urine Bilirubin Neg (Negative) 05/21/23 17:50 Urine Urobilinogen Neg mg/dL (Negative) 05/21/23 17:50 Ur Leukocyte Esterase Negative (Negative) 05/21/23 17:50 Urine RBC Rare /hpf (0-2) 05/21/23 17:50 Urine WBC 0-4 /hpf (0-5) H 05/21/23 17:50 Ur Squamous Epith Cells 10-15 /hpf (0-5) H 05/21/23 17:50 Amorphous Sediment Not Reportable 05/21/23 17:50 Urine Bacteria Trace /hpf (NONE) 05/21/23 17:50 Procedures Performed Laparoscopic appendectomy Vitals Last Vital Signs Temp 98.2 F 05/21/23 17:07 Pulse 128 H 05/21/23 20:01 Resp 16 05/21/23 20:01 BP 122/83 05/21/23 20:01 Pulse Ox 100 05/21/23 20:01 O2 Del Method Room Air 05/21/23 17:46 Discharge Plan Discharge Patient Disposition: Home Condition: Stable Prescriptions: New hydrocodone-acetaminophen 10-325 mg tablet 1 tab PO Q6H PRN (Reason: pain) Qty: 20 0RF Rx Instructions: May take half of a tab at a time amoxicillin-pot clavulanate 875-125 mg tablet 1 tab PO BID Qty: 20 0RF Colace 100 mg capsule 100 mg PO BID Qty: 14 0RF Continued EpiPen 2-Gil 0.3 mg/0.3 mL auto-injector 0.3 mg IM Q10M PRN (Reason: anaphylaxis) Qty: 2 3RF Rx Instructions: for 2 doses Discharge Orders: Discharge Order (Routine); Ordered 05/21/23 Ordered By: Richmond Hernández Referrals: Mine Combs FNP [Primary Care Provider] - 4-7 days Richmond Hernández DO [Physician] - 2 weeks Discharge Diet: Advance as tolerated Discharge Activity: Resume usual activity Activity Restrictions/Additional Instructions: Do not soak incisions underwater for 2 weeks. Shower daily. Discharge Attestations Time Spent in Discharge Care*: less than 30 min Quality Metrics Clinical Quality Measures [ No reported AMI, CVA or VTE this stay] Coding Level of Care Code Acute Code for [facility] Fwd Diagnoses Acute appendicitis K35.80
[2023-05-21] MEDS: lidocaine-epi 2% PF 1:200,000 20 mL SDV 10 ML XX (21:02)
[2023-05-21] MEDS: fentaNYL 50 mcg/mL INJ 2mL IVP (21:37)
== END 2023-05-21 22:30 | disposition home or self-care (01) ==
LOC: ER 17:36 → OR 19:27
PROVIDERS: Emergency Provider Emergency Medicine; PCP Nurse Practitioner Family; Visit Provider Surgery
PROC: 0DTJ4ZZ Resection of Appendix, Percutaneous Endoscopic Approach (ICD-10-PCS; CPT 44970; principal; 2023-05-21 20:00)
DX: K35.80 Unspecified acute appendicitis (principal)
CPT/HCPCS: 44970; 74177; 80053; 81001; 81025; 85025; 86140; 88304; J0131; J0330; J1100; J1200; J1885; J2250; J2405; J2543; J2704; J2710; J3010; J3490; J7030; J7040; Q9967

== ENCOUNTER → 2023-07-07 12:47 | Outpatient (BNVA) | payer SELFPAY | PROVIDERS: PCP Nurse Practitioner Family; Visit Provider Surgery | DX: R10.9 Unspecified abdominal pain (principal) | CPT/HCPCS: 99214 ==

== ENCOUNTER 2023-07-19 08:12 | Outpatient (CLI) | payer SELFPAY ==
--- NOTE | 2023-07-19 08:30 | US_ITS ---
WS: [id number] RIGHT UPPER QUADRANT ULTRASOUND HISTORY: abdominal pain COMPARISON: None available. Liver: 15.0 cm in length. Normal size liver and echogenicity. No bile duct dilatation or mass. Portal Vein: Normal hepatopetal flow with monophasic waveform. Gallbladder: Normally distended gallbladder with no stones or wall thickening. CBD: 0.2 cm Pancreas: Portions of the head and tail are obscured. The body is negative. Right kidney: 11.7 cm in length. Normal size and echogenicity. No hydronephrosis or mass. Aorta and IVC: Unremarkable abdominal aorta and IVC. No ascites. IMPRESSION: 1. Normal gallbladder. 2. No bile duct dilatation.
== END 2023-07-19 08:13 | disposition home or self-care (01) ==
LOC: RAD 08:12
PROVIDERS: PCP Nurse Practitioner Family; Visit Provider Surgery
DX: R10.9 Unspecified abdominal pain (principal)
CPT/HCPCS: 76705

== ENCOUNTER → 2023-08-04 16:43 | Outpatient (BNVA) | payer SELFPAY | PROVIDERS: PCP Nurse Practitioner Family; Visit Provider Surgery | DX: R10.9 Unspecified abdominal pain (principal) | CPT/HCPCS: 99212 ==